=== PATIENT | male | born 1935 | race Caucasian/White ===

== ENCOUNTER 2021-11-15 22:52 | Emergency (ER) | payer MEDICARE, BC, SELFPAY ==
[2021-11-15 23:19] VITALS: BP 157/90; PULSE 71; RESP 18; TEMP 37.1; O2SAT 100; BMI 27.8
--- NOTE | 2021-11-16 00:09 | ED_ITS ---
HPI - Fall General Chief Complaint: Fall/Minor Trauma Stated Complaint: Fell injured ribs Time Seen by Provider: 11/15/21 22:58 History of Present Illness HPI Narrative: Patient is a 86-year-old gentleman on blood thinners who fell tonight landing on the right side of his chest. He did not lose consciousness he did not hit his head he simply stumbled. Patient has pain over the anterior axillary line on the right. He has had no fevers no chills no night sweats no cough. The pain i s quite minimal. He states that he is comfortable not having any further evaluation would like to just go home as long as he does not have a collapsed lung. Related Data Home Medications Medication Instructions Recorded Confirmed atorvastatin 40 mg tablet mg 11/15/21 furosemide 20 mg tablet mg PO BID 11/15/21 levothyroxine 100 mcg tablet mcg 11/15/21 lisinopril 10 mg tablet mg 11/15/21 metoprolol succinate 50 mg mg PO 11/15/21 tablet,extended release 24 hr warfarin 5 mg tablet mg PO 11/15/21 Allergies Allergy/AdvReac Type Severity Reaction Status Date / Time Penicillins Allergy Rash Verified 11/15/21 23:27 Review of Systems Status of ROS: Reports: 10 or more systems reviewed and unremarkable except as noted in History and below Exam Narrative: Exam Narrative: EXAM GENERAL: Patient appears comfortable and well. EYES: No scleral icterus. LYMPH: No supraclavicular or cervical lymphadenopathy. SKIN: Visible skin seen during exam normal or with benign process only. EXT: No dependent lower extremity pedal edema. HEART: Regular rate and rhythm with no murmurs, rubs, or gallops. LUNGS: Clear to auscultation bilaterally with no crackles or wheezes. ABD: Soft, non tender, non distended. PSYCH: Good eye contact, speech is not pressured. Chest minimal tenderness to palpation. Const: Vital Signs, click to edit/add: Vital Signs - 24 hr 11/15/21 23:19 Temperature 98.7 F Pulse Rate [Right Pulse Oximeter] 71 Respiratory Rate 18 Blood Pressure [Le ft Upper Arm] 157/90 H Pulse Oximetry 100 Course Course Hospital Course: We did discuss further evaluation including imaging. She would like to return home with follow-up as needed. Vital Signs Vital signs: Initial Vital Signs Temperature 98.7 F 11/15/21 23:19 Temperature Source Temporal Artery Scan 11/15/21 23:19 Pulse Rate 71 11/15/21 23:19 Respiratory Rate 18 11/15/21 23:19 Blood Pressure 157/90 H 11/15/21 23:19 Blood Pressure Mean 112 11/15/21 23:19 Blood Pressure Position Sitting 11/15/21 23:19 Pulse Oximetry 100 11/15/21 23:19 Oxygen Delivery Method 11/15/21 23:19 Vital Signs Temperature 98.7 F 11/15/21 23:19 Pulse Rate 71 11/15/21 23:19 Respiratory Rate 18 11/15/21 23:19 Blood Pressure 157/90 H 11/15/21 23:19 Pulse Oximetry 100 11/15/21 23:19 Temperature 98.7 F 11/15/21 23:19 Pulse Rate 71 11/15/21 23:19 Respiratory Rate 18 11/15/21 23:19 Blood Pressure 157/90 H 11/15/21 23:19 Pulse Oximetry 100 11/15/21 23:19 Discharge Plan Discharge Clinical Impression: Chest wall contusion Patient Disposition: Home, Self-Care Condition: Stable Instructions: Rib Contusion (ED) Additional Instructions: Ice Tylenol Activity Level: No Restrictions Discharge Diet: Regular Prescriptions: No Action atorvastatin 40 mg tablet 0RF furosemide 20 mg tablet PO BID 0RF metoprolol succinate 50 mg tablet extended release 24 hr PO 0RF levothyroxine 100 mcg tablet 0RF lisinopril 10 mg tablet 0RF warfarin 5 mg tablet PO 0RF Rx Instructions: 5mg twice a week, other days 2.5mg Follow Up/Referrals: Vasyl Hay MD [Primary Care Provider] - Stand Alone Forms: [facility] Info Instructions
== END 2021-11-16 01:06 | disposition home or self-care (01) ==
LOC: ED 11-16 00:55
PROVIDERS: Emergency Provider Internal Medicine; PCP Family Medicine
DX: S20.219A Contusion of unspecified front wall of thorax, initial encounter (principal); W19.XXXA Unspecified fall, initial encounter
CPT/HCPCS: 99283

== ENCOUNTER 2023-02-13 05:42 | Emergency (ER) | payer MEDICARE, BC, SELFPAY ==
[2023-02-13 05:52] VITALS: BP 147/97; PULSE 83; RESP 16; TEMP 36.6; O2SAT 96; BMI 28.6
--- NOTE | 2023-02-13 06:03 | ED.MALEGU ---
HPI - Male Genitourinary General Time Seen by Provider: 06:03 Date Seen: 02/13/23 Chief complaint: Urogenital Problems, Male Stated complaint: peeing blood Time Seen by Provider: 02/13/23 06:02 Source: patient, family and RN notes reviewed Mode of arrival: ambulatory Limitations: no limitations History of Present Illness HPI Narrative: Patient is a very pleasant 87-year-old male currently on warfarin with a history of pacer who comes to the emergency room for evaluation regarding blood in his urine. Patient initially noticed this at approximately 0200 hours and then again at 0500 hours. He notes there are no clots. He denies any pain or urgency. He cannot say if he is completely emptying his bladder. Patient notes that he takes warfarin at night and did take his nighttime dose yesterday. He denies any recent trauma. He does state this has happened to him in the past but it gradually went away. He denies lightheadedness or shortness of breath. Patient notes that yesterday he felt that there was some vibration coming from his pacemaker. He notes that he did have it interrogated and was told there was nothing wrong with it. He has not feeling that sensation today. Patient presents with his son. Related Data Home Medications Medication Instructions Recorded Confirmed atorvastatin 40 mg tablet mg 11/15/21 furosemide 20 mg tablet mg PO BID 11/15/21 levothyroxine 100 mcg tablet mcg 11/15/21 lisinopril 10 mg tablet mg 11/15/21 metoprolol succinate 50 mg mg PO 11/15/21 tablet,extended release 24 hr warfarin 5 mg tablet mg PO 11/15/21 Allergies Allergy/AdvReac Type Severity Reaction Status Date / Time Penicillins Allergy Rash Verified 11/15/21 23:27 Review of Systems Status of ROS: Reports: 10 or more systems reviewed and unremarkable except as noted in History and below Const: Denies: fever, change in weight, fatigue or night sweats ENMT: Denies: throat pain or difficulty swallowing Cardio: Reports: other; Denies: chest pain or shortness of breath with exertion Resp: Denies: shortness of breath or cough GI: Denies: abdominal pain, nausea, vomiting or difficulty swallowing : Reports: blood in urine; Denies: painful urination, urinary frequency or urinary urgency Musculo: Denies: back pain Endo: Denies: fatigue PFSH PFSH Social History Smoking Status: Never smoker How often do you have a drink containing alcohol: never AUDIT-C Alcohol total score: 0 Non-prescribed substance use: denies use service: No Exam Narrative: Exam Narrative: Alert and oriented. No acute distress. Heart with regular rate and rhythm. Lungs are clear bilaterally. No CVA tenderness with percussion. Abdomen is soft nontender. No masses are palpated. Const: Vital Signs, click to edit/add: Vital Signs - 24 hr 02/13/23 05:52 Temperature 97.9 F Pulse Rate [Left P ulse Oximeter] 83 Respiratory Rate 16 Blood Pressure [Ri ght Upper Arm] 147/97 H Pulse Oximetry 96 Oxygen Delivery Me thod Room Air Course Course ED Course: Differential diagnosis includes but is not limited to UTI, nephrolithiasis, bladder wall lesion, elevated INR. At this time will check CBC, basic, INR as well as urinalysis. Vital Signs Vital signs: Initial Vital Signs Temperature 97.9 F 02/13/23 05:52 Temperature Source Temporal Artery Scan 02/13/23 05:52 Pulse Rate 83 02/13/23 05:52 Respiratory Rate 16 02/13/23 05:52 Blood Pressure 147/97 H 02/13/23 05:52 Blood Pressure Mean 113 H 02/13/23 05:52 Blood Pressure Position Sitting 02/13/23 05:52 Pulse Oximetry 96 02/13/23 05:52 Oxygen Delivery Method Room Air 02/13/23 05:52 Vital Signs Temperature 97.9 F 02/13/23 05:52 Pulse Rate 83 02/13/23 05:52 Respiratory Rate 16 02/13/23 05:52 Blood Pressure 147/97 H 02/13/23 05:52 Pulse Oximetry 96 02/13/23 05:52 Oxygen Delivery Method Room Air 02/13/23 05:52 Temperature 97.9 F 02/13/23 05:52 Pulse Rate 83 02/13/23 05:52 Respiratory Rate 16 02/13/23 05:52 Blood Pressure 147/97 H 02/13/23 05:52 Pulse Oximetry 96 02/13/23 05:52 Oxygen Delivery Method Room Air 02/13/23 05:52 MDM - Male Genitourinary MDM Narrative Medical decision making narrative: 1. Hematuria-at this time there is no evidence of UTI on urinalysis and patient has no symptoms of UTI. INR is elevated at 3.51. Hemoglobin is normal. At this time my thought is that patient may have a bladder lesion or bleeding that is secondary to elevated INR. I do not feel that he needs emergent urological consult. We will await the urine culture to ensure no underlying infection. Otherwise our plans are for allowing the INR to slowly drift down. I did explain that we could certainly reverse his Coumadin but that would place him at risk for stroke and I do not feel that that option is necessary at this time with a reassuring hemoglobin. 2. Anticoagulation-INR 3.5. At this time recommend skipping tonight dose of Coumadin. Recommend eating broccoli or other green vegetable today as well. 3. Disposition-at this time will allow Vasyl to return home. He is to monitor his urine today. If he is feeling lightheaded or has chest pain, develops clot in or inability to urinate or fever he will need to return to the emergency room for further evaluation. Additionally, he will need to return to the ER if he has blood in his urine greater than 24 hours. If the bleeding stops he will need to follow up with his primary MD as he may need urological consultation. Medical Records Attestation: I reviewed the patient's medical records. Lab Data Attestation: I reviewed the patient's lab results. Labs: Lab Results 02/13/23 02/13/23 Range/Units 05:50 06:15 WBC 9.73 (4.50-11.00) K/uL RBC 4.21 L (4.30-5.90) m/uL Hgb 13.8 (13.5-17.5) gm/dL Hct 40.6 (37.0-53.0) % MCV 96 (80-100) fL MCH 33 (26-34) pg MCHC 34 (32-36) gm/dL RDW Coeff of [place] 13.3 (11.5-15.5) % Plt Count 169 (140-440) K/uL Neut % (Auto) 79.1 H (42.0-72.0) % Lymph % (Auto) 12.3 L (20-44) % [place] % (Auto) 5.4 (0.0-11.0) % Eos % (Auto) 2.6 (0.0-7.0) % Baso % (Auto) 0.4 (0.0-3.0) % Neut # (Auto) 7.70 H (1.7-7.0) K/uL Lymph # (Auto) 1.20 (0.90-2.90) K/uL [place] # (Auto) 0.50 (0.00-0.90) K/UL Eos # (Auto) 0.25 (0.00-0.50) K/uL Baso # (Auto) 0.04 (0.00-0.30) K/uL Abs Immat Gran (auto) 0.02 (0.00-0.30) K/uL Imm/Tot Granulo (auto) 0.2 % INR 3.51 H (0.91-1.10) Sodium 141 (135-149) mmol/L Potassium 3.9 (3.6-5.1) mmol/L Chloride 107 (96-114) mmol/L Carbon Dioxide 27 (20-32) mmol/L Anion Gap 7 (7-15) mEq/L BUN 25 (7-30) mg/dL Creatinine 0.9 (0.5-1.5) mg/dL Estimated Creat Clear 57.12 Estimated GFR 83 ml/min Glucose 130 H (60-115) mg/dL Calcium 9.5 (8.4-10.6) mg/dL Urine Color Red A (Yellow) Urine Appearance Cloudy A (Clear) Urine pH 6.0 (5.0-8.5) Ur Specific [place] 1.020 (1.000-1.030) Urine Protein 2+ A (Negative) Urine Glucose (UA) Negative (Negative) Urine Ketones Negative (Negative) Urine Blood 3+ A (Negative) Urine Nitrite Negative (Negative) Urine Bilirubin Negative (Negative) Urine Urobilinogen 1.0 (0.2-1.0) Ur Leukocyte Esterase Negative (Negative) Urine RBC >100 A (0-2) Urine WBC 0-2 (0-5) Ur Squamous Epith Cells Few (None-Few) Urine Bacteria Few A (None) Discharge Plan Discharge Clinical Impression: Hematuria Patient Disposition: Home, Self-Care Condition: Unchanged Additional Instructions: 1. The urine sample did not show any evidence of an infection today. However, there is a 2nd test called a urine culture which will be done to make sure there is no infection. The results will be available tomorrow and should you have an infection you will be called. 2. Your INR is 3.51. I suggest today that you eat some green vegetables such as broccoli. I would also ask that you skip your nighttime dosing of Coumadin. Check in with your clinics Coumadin nurse to provide further suggestions for your INR. 3. Return to the emergency room if you develop fever, inability to urinate, painful urination or worsening symptoms. 4. If your bleeding stops today, you may follow-up with your regular doctor next week for recheck. They may have you see a urologist. If your bleeding does not stop in the next 24 hours he will need to return to the emergency room for a hemoglobin recheck. Prescriptions: No Action atorvastatin 40 mg tablet furosemide 20 mg tablet PO BID metoprolol succinate 50 mg tablet extended release 24 hr PO levothyroxine 100 mcg tablet lisinopril 10 mg tablet warfarin 5 mg tablet PO Rx Instructions: 5mg twice a week, other days 2.5mg Follow Up/Referrals: Vasyl Hay MD [Primary Care Provider] - Stand Alone Forms: [employer] Info Instructions
[2023-02-13 06:24] LABS: Basophils Absolute Auto 0.04 K/uL (0.00-0.30); Basophils Percent Auto 0.4 % (0.0-3.0); Eosinophils Absolute Auto 0.25 K/uL (0.00-0.50); Eosinophils Percent Auto 2.6 % (0.0-7.0); Hematocrit 40.6 % (37.0-53.0); Hemoglobin* 13.8 gm/dL (13.5-17.5); Immature Granulocytes Abs Auto 0.02 K/uL (0.00-0.30); Immature Granulocytes Pct Auto 0.2 %; Lymphocytes Percent Auto 12.3 % (20-44); Mean Corpuscular HGB Conc 34 gm/dL (32-36); Mean Corpuscular Hemoglobin 33 pg (26-34); Mean Corpuscular Volume 96 fL (80-100); Monocytes Percent Auto 5.4 % (0.0-11.0); Neutrophils Percent Auto 79.1 % (42.0-72.0); Platelet Count* 169 K/uL (140-440); RDW Coefficient of Variation % 13.3 % (11.5-15.5); Red Blood Count 4.21 m/uL (4.30-5.90); White Blood Count* 9.73 K/uL (4.50-11.00)
[2023-02-13 06:26] LABS: Appearance Urine Cloudy (Clear); Bacteria Urine Few; Bilirubin Urine Negative (Negative); Blood Urine 3+ (Negative); Color Urine Red (Yellow); Glucose Urine Negative (Negative); Ketones Urine Negative (Negative); Leukocyte Esterase Urine Negative (Negative); Nitrite Urine Negative (Negative); Protein Urine 2+ (Negative); RBC Urine >100 (0-2); Squamous Epithelial Cell Urine Few (None-Few); WBC Urine 0-2 (0-5)
[2023-02-13 06:27] LABS: Slide Review Reflex No
[2023-02-13 06:36] LABS: Chloride* 107 mmol/L (96-114); Potassium* 3.9 mmol/L (3.6-5.1); Sodium* 141 mmol/L (135-149)
[2023-02-13 06:39] LABS: Creatinine* 0.9 mg/dL (0.5-1.5); Est. Creatinine Clearance* 57.12; Estimated Glomerular Filt Rate 83 ml/min
[2023-02-13 06:40] LABS: Anion Gap 7 mEq/L (7-15); Blood Urea Nitrogen* 25 mg/dL (7-30); Calcium* 9.5 mg/dL (8.4-10.6); Carbon Dioxide* 27 mmol/L (20-32); Glucose* 130 mg/dL (60-115)
[2023-02-13 06:43] LABS: INR 3.51 (0.91-1.10); Prothrombin Time 36.8 Seconds
== END 2023-02-13 07:35 | disposition home or self-care (01) ==
PROVIDERS: Emergency Provider Family Medicine; PCP Family Medicine
DX: R31.9 Hematuria, unspecified (principal); Z79.01 Long term (current) use of anticoagulants
CPT/HCPCS: 36415; 80048; 81001; 85025; 85610; 87086; 99283; 99284

== ENCOUNTER 2023-11-13 14:30 | Observation (INO) | payer MEDICARE, BC, SELFPAY ==
[2023-11-13] VITALS (23 sets, daily range): BP systolic 127–161; BP diastolic 77–98; PULSE 44–99; RESP 16–18; TEMP 36.8–36.9; O2SAT 96–100; BMI 31.6
--- NOTE | 2023-11-13 14:40 | CRLHL7_ITS ---
For Patients: As a result of the Century Cures Act, medical imaging exams and procedure reports are released immediately into your electronic medical record. You may view this report before your referring provider. If you have questions, please contact your health care provider. Indication: Fall Technique: Noncontrast axial CT of the cervical spine with coronal and sagittal reformats. Comparison: Same-day CT head Findings: Reversal of the normal cervical lordosis. Trace retrolisthesis at C4-5 and C5-6, trace anterolisthesis at C7-T1. No acute fracture identified. Craniocervical junction appears within normal limits. Scattered spondylosis. Bony ankylosis across the right C2-3 facet joint. Spinal canal appears grossly patent. Uncovertebral and facet arthropathy contribute to multilevel neural foraminal stenosis, greatest on the right at C3-4. No suspicious findings identified in the paraspinal soft tissues. Acls Nurse images demonstrate left pectoral pacemaker and leads. Impression: 1. No evidence of acute fracture or traumatic malalignment in cervical spine. 2. Cervical spondylosis as detailed. Please note that all CT scans at this facility use dose modulation, iterative reconstruction, and/or weight-based dosing when appropriate to reduce radiation dose to as low as reasonably achievable. Dictated by Prisca Goff MD @ 11/13/2023 3:47:43 PM (Electronically Signed)
--- NOTE | 2023-11-13 14:40 | CRLHL7_ITS ---
For Patients: As a result of the Century Cures Act, medical imaging exams and procedure reports are released immediately into your electronic medical record. You may view this report before your referring provider. If you have questions, please contact your health care provider. INDICATION: Fall TECHNIQUE: Noncontrast axial CT of the head. Coronal and sagittal reformats. Bone and soft tissue algorithms. COMPARISON: CT head 11/11/2023, 02/06/2021 FINDINGS: Extra-axial fluid collection along the right cerebral convexity, measuring up to 6 mm maximal coronal thickness overlying the parietal lobe (series 6/62), with 3 mm thickness dense component along the frontal convexity (series 6/37). No significant subjacent mass effect, midline shift, or herniation. Stable chronic left parieto-occipital infarct. Stable generalized cerebral volume loss and chronic microangiopathy changes. Redemonstration of presumed partially calcified right frontal convexity meningioma. Calcific intracranial atherosclerotic plaquing. Intact calvarium. Clear visualized paranasal sinuses and mastoid air cells. Bilateral lens implants. IMPRESSION: 1. Thin 6 mm extra-axial collection along the right cerebral convexity, new from 11/11/2023, with discrete hyperdense and hypodense components, suggestive of subdural hematohygroma. 2. No skull fracture, midline shift, or herniation. Exam findings were discussed with Lisa Womack at 3:42 p.m. on 11/13/2023. Please note that all CT scans at this facility use dose modulation, iterative reconstruction, and/or weight-based dosing when appropriate to reduce radiation dose to as low as reasonably achievable. Dictated by Prisca Goff MD @ 11/13/2023 3:43:52 PM (Electronically Signed)
[2023-11-13 15:13] LABS: Lactate* 1.6 mmol/L (0.5-1.9)
[2023-11-13 15:18] LABS: Basophils Absolute Auto 0.04 K/uL (0.00-0.30); Basophils Percent Auto 0.6 % (0.0-3.0); Eosinophils Absolute Auto 0.28 K/uL (0.00-0.50); Eosinophils Percent Auto 4.2 % (0.0-7.0); Hematocrit 40.3 % (37.0-53.0); Hemoglobin* 13.5 gm/dL (13.5-17.5); Immature Granulocytes Abs Auto 0.04 K/uL (0.00-0.30); Immature Granulocytes Pct Auto 0.6 %; Lymphocytes Absolute Auto 1.41 K/uL (0.90-2.90); Mean Corpuscular HGB Conc 34 gm/dL (32-36); Mean Corpuscular Hemoglobin 32 pg (26-34); Mean Corpuscular Volume 96 fL (80-100); Monocytes Percent Auto 7.6 % (0.0-11.0); Neutrophils Absolute Auto 4.45 K/uL (1.7-7.0); Platelet Count* 165 K/uL (140-440); RDW Coefficient of Variation % 13.6 % (11.5-15.5); Red Blood Count 4.19 m/uL (4.30-5.90); White Blood Count* 6.73 K/uL (4.50-11.00)
[2023-11-13 15:25] LABS: Slide Review Reflex No
[2023-11-13 15:40] LABS: Albumin* 3.8 g/dL (3.3-5.0); Chloride* 107 mmol/L (96-114)
[2023-11-13 15:41] LABS: Sodium* 141 mmol/L (135-149)
[2023-11-13 15:42] LABS: Potassium* 3.2 mmol/L (3.6-5.1)
[2023-11-13 15:43] LABS: Creatinine* 0.8 mg/dL (0.5-1.5); Est. Creatinine Clearance* 51.06; Estimated Glomerular Filt Rate 85 ml/min
[2023-11-13 15:44] LABS: Alanine Aminotransferase* 17 U/L (4-50); Alkaline Phosphatase* 87 U/L (40-150); Anion Gap 7 mEq/L (7-15); Aspartate Amino Transferase* 24 U/L (12-35); Bilirubin Direct* 0.2 mg/dL (0.0-0.5); Bilirubin Total* 3.2 mg/dL (0.1-1.5); Blood Urea Nitrogen* 17 mg/dL (7-30); Carbon Dioxide* 27 mmol/L (20-32); Glucose* 118 mg/dL (60-115); Total Protein* 6.8 g/dL (6.0-8.3)
[2023-11-13 15:45] LABS: Calcium* 8.5 mg/dL (8.4-10.6)
[2023-11-13 15:51] LABS: C Reactive Protein* < 0.5 mg/dL (0.5-1.0)
[2023-11-13 15:54] LABS: Troponin, Point-of-Care* 0.01 ng/ml (0.01-0.04)
[2023-11-13 16:03] LABS: NT Pro B Type NatriureticPept* 828 pg/mL; Troponin I* < 0.01 ng/mL (0.01-0.04)
--- NOTE | 2023-11-13 16:06 | ED_ITS ---
HPI - General Adult General Chief complaint: Fall/Minor Trauma Stated complaint: fall, cut on head Time Seen by Provider: 11/13/23 14:39 Source: patient and family Mode of arrival: ambulatory Limitations: no limitations History of Present Illness HPI narrative: 88-year-old male coming in today after falling and hitting his head. Patient states that he specially very dizzy over the last 4 days and has fallen multiple times. He denies the room spinning. He denies chest pain or shortness of breath. He does not think that he has lost consciousness but feels like he is going to and falls. He was seen in the [place] [facility] 2 days ago after a fall, head CT was unremarkable lab work was unremarkable and patient was sent home. Today he states that he was trying to walk through the bathroom door in his walker was in the way so he walked around a walker to moved out of the way so the door could shot, felt lightheaded and fell hitting his head on but he thinks was the door or the walker on his way down. He states that he did not lose consciousness. He was able to get up right away and noticed that he was bleeding. He does live independently. He is on blood thinners. Related Data Home Medications ?Medication ?Instructions ?Recorded ?Confirmed atorvastatin 40 mg tablet mg 11/15/21 furosemide 20 mg tablet mg PO BID 11/15/21 levothyroxine 100 mcg tablet mcg 11/15/21 lisinopril 10 mg tablet mg 11/15/21 metoprolol succinate 50 mg mg PO 11/15/21 tablet,extended release 24 hr warfarin 5 mg tablet mg PO 11/15/21 Allergies Allergy/AdvReac Type Severity Reaction Status Date / Time Penicillins Allergy Rash Verified 11/15/21 23:27 Review of Systems Status of ROS: Reports: 10 or more systems reviewed and unremarkable except as noted in History and below [facility] Social History Smoking Status: Never smoker Do you use any of these nicotine containing products: None Second hand tobacco smoke exposure: No How often do you have a drink containing alcohol: never AUDIT-C Alcohol total score: 0 Non-prescribed substance use: denies use service: No Exam Narrative: Exam Narrative: Well-nourished well-developed patient in no acute distress. Alert and oriented. Answers questions appropriately. Mood and affect are appropriate. Thoughts are goal oriented and rational. No tangential or magical thinking noted. Patient speaks in full sentences without needing to catch his breath. HEENT: Normocephalic. Pupils are equally round reactive to light. Extraocular muscles are intact. Conjunctivae are moist without any icterus noted. Moist mucous membranes. Neck is soft. He has no tenderness to palpation of the cervical spine. Small laceration to the top of the anterior head. Cardiovascular: Heart is regular rate and rhythm. Bilateral radial pulses are weak. Lungs: Clear to auscultation bilaterally no wheezes rhonchi or rales are appreciated. Patient takes deep breaths without any discomfort. Abdomen: Soft and nontender nondistended with normal bowel sounds. Skin: Well perfused. Const: Vital Signs, click to edit/add: Vital Signs - 24 hr 11/13/23 14:34 11/13/23 15:05 11/13/23 16:24 Temperature 98.3 F Pulse Rate [Pulse Oximeter] 99 Pulse Rate [orthos tatic lying Apical ] 70 Pulse Rate [orthos tatic sitting] 75 Pulse Rate [orthos tatic standing Api linda] 44 L Respiratory Rate 18 Blood Pressure [Ri ght Upper Arm] 134/79 Blood Pressure [or thostatic lying Ri ght Arm] 150/83 H Blood Pressure [or thostatic sitting Right Arm] 154/96 H Blood Pressure [or thostatic standing ] 130/81 Pulse Oximetry 96 99 Oxygen Delivery Me thod Room Air Course Course ED Course: EKG, read by me, shows a ventricular paced rhythm, pulse 70. Labs were drawn: CBC was unremarkable. Chemistries show a low potassium at 3.2. Patient does have a history of hypokalemia. Normal lactate, LFTs are unremarkable aside from elevated total bilirubin at 3.2. Direct bilirubin is normal at 0.2. Troponin CRP are normal. BNP 828. Normal TSH INR is therapeutic at 2.25 Patient does have a history of hypokalemia, takes potassium supplements but has been having a difficult time swallowing them recently. When he was seen in the [place] [facility] 2 days ago for the same issue he is being seen today, they did change his potassium tablets to powder. Consult was done with Emilie Gonzales, Dr. Carranza, neurology, who felt that follow-up imaging was not necessary. Orthostatic vital signs were done: Patient's blood pressure did drop almost 20 points when he stood up in his pulse went from 70-44. He became acutely symptomatic. Given the patient's weakness, significant dizziness upon standing, he is not safe to go home at this time. Vital Signs Vital signs: Initial Vital Signs Temperature 98.3 F 11/13/23 14:34 Temperature Source Temporal Artery Scan 11/13/23 14:34 Pulse Rate 99 11/13/23 14:34 Respiratory Rate 18 11/13/23 14:34 Blood Pressure 134/79 11/13/23 14:34 Blood Pressure Mean 97 11/13/23 14:34 Pulse Oximetry 96 11/13/23 14:34 Oxygen Delivery Method Room Air 11/13/23 14:34 Vital Signs Temperature 98.3 F 11/13/23 14:34 Pulse Rate 99 11/13/23 14:34 Respiratory Rate 18 11/13/23 14:34 Blood Pressure 134/79 11/13/23 14:34 Pulse Oximetry 96 11/13/23 14:34 Oxygen Delivery Method Room Air 11/13/23 14:34 Temperature 98.3 F 11/13/23 14:34 Pulse Rate 70 11/13/23 16:24 Respiratory Rate 18 11/13/23 14:34 Blood Pressure 150/83 H 11/13/23 16:24 Pulse Oximetry 99 11/13/23 15:05 Oxygen Delivery Method Room Air 11/13/23 14:34 Medical Decision Making MDM Narrative Medical decision making narrative: 88-year-old male with dizziness and multiple falls over the last couple of days, certainly sounds like he may have been having syncopal episodes, on anticoagulation therapy now presenting with a subdural hematoma. Patient will be admitted for further management. Lab Data Lab results reviewed: Yes I reviewed the patient's lab results Labs: Lab Results 11/13/23 11/13/23 11/13/23 Range/Units 15:05 15:05 15:05 WBC 6.73 (4.50-11.00) K/uL RBC 4.19 L (4.30-5.90) m/uL Hgb 13.5 (13.5-17.5) gm/dL Hct 40.3 (37.0-53.0) % MCV 96 (80-100) fL MCH 32 (26-34) pg MCHC 34 (32-36) gm/dL RDW Coeff of [place] 13.6 (11.5-15.5) % Plt Count 165 (140-440) K/uL Neut % (Auto) 66.0 (42.0-72.0) % Lymph % (Auto) 21.0 (20-44) % [place] % (Auto) 7.6 (0.0-11.0) % Eos % (Auto) 4.2 (0.0-7.0) % Baso % (Auto) 0.6 (0.0-3.0) % Neut # (Auto) 4.45 (1.7-7.0) K/uL Lymph # (Auto) 1.41 (0.90-2.90) K/uL [place] # (Auto) 0.50 (0.00-0.90) K/UL Eos # (Auto) 0.28 (0.00-0.50) K/uL Baso # (Auto) 0.04 (0.00-0.30) K/uL Abs Immat Gran (auto) 0.04 (0.00-0.30) K/uL Imm/Tot Granulo (auto) 0.6 % INR 2.25 H (0.91-1.10) Sodium Cancelled 141 Potassium Cancelled 3.2 L Chloride Cancelled Carbon Dioxide Anion Gap BUN Creatinine Estimated Creat Clear Estimated GFR Glucose Lactate (0.5-1.9) mmol/L Calcium Magnesium (1.5-2.6) mg/dL Total Bilirubin (0.1-1.5) mg/dL Direct Bilirubin (0.0-0.5) mg/dL AST (12-35) U/L ALT (4-50) U/L Alkaline Phosphatase (40-150) U/L Troponin I (0.01-0.04) ng/mL C-Reactive Protein NT-Pro-B Natriuret Pep pg/mL Total Protein (6.0-8.3) g/dL Albumin (3.3-5.0) g/dL TSH (0.270-4.20) uIU/mL SARS-CoV-2 (PCR) (Negative) Influenza Type A (PCR) (Negative) Influenza Type B (PCR) (Negative) Lab Acknowledgement POC Troponin I (0.01-0.04) ng/ml 11/13/23 11/13/23 11/13/23 Range/Units 15:05 15:05 15:05 WBC (4.50-11.00) K/uL RBC (4.30-5.90) m/uL Hgb (13.5-17.5) gm/dL Hct (37.0-53.0) % MCV (80-100) fL MCH (26-34) pg MCHC (32-36) gm/dL RDW Coeff of [place] (11.5-15.5) % Plt Count (140-440) K/uL Neut % (Auto) (42.0-72.0) % Lymph % (Auto) (20-44) % [place] % (Auto) (0.0-11.0) % Eos % (Auto) (0.0-7.0) % Baso % (Auto) (0.0-3.0) % Neut # (Auto) (1.7-7.0) K/uL Lymph # (Auto) (0.90-2.90) K/uL [place] # (Auto) (0.00-0.90) K/UL Eos # (Auto) (0.00-0.50) K/uL Baso # (Auto) (0.00-0.30) K/uL Abs Immat Gran (auto) (0.00-0.30) K/uL Imm/Tot Granulo (auto) % INR (0.91-1.10) Sodium Potassium Chloride 107 Carbon Dioxide Cancelled 27 Anion Gap Cancelled 7 BUN Cancelled Creatinine Estimated Creat Clear Estimated GFR Glucose Lactate (0.5-1.9) mmol/L Calcium Magnesium (1.5-2.6) mg/dL Total Bilirubin (0.1-1.5) mg/dL Direct Bilirubin (0.0-0.5) mg/dL AST (12-35) U/L ALT (4-50) U/L Alkaline Phosphatase (40-150) U/L Troponin I (0.01-0.04) ng/mL C-Reactive Protein NT-Pro-B Natriuret Pep pg/mL Total Protein (6.0-8.3) g/dL Albumin (3.3-5.0) g/dL TSH (0.270-4.20) uIU/mL SARS-CoV-2 (PCR) (Negative) Influenza Type A (PCR) (Negative) Influenza Type B (PCR) (Negative) Lab Acknowledgement POC Troponin I (0.01-0.04) ng/ml 11/13/23 11/13/23 11/13/23 Range/Units 15:05 15:05 15:05 WBC (4.50-11.00) K/uL RBC (4.30-5.90) m/uL Hgb (13.5-17.5) gm/dL Hct (37.0-53.0) % MCV (80-100) fL MCH (26-34) pg MCHC (32-36) gm/dL RDW Coeff of Jena (11.5-15.5) % Plt Count (140-440) K/uL Neut % (Auto) (42.0-72.0) % Lymph % (Auto) (20-44) % [place] % (Auto) (0.0-11.0) % Eos % (Auto) (0.0-7.0) % Baso % (Auto) (0.0-3.0) % Neut # (Auto) (1.7-7.0) K/uL Lymph # (Auto) (0.90-2.90) K/uL [place] # (Auto) (0.00-0.90) K/UL Eos # (Auto) (0.00-0.50) K/uL Baso # (Auto) (0.00-0.30) K/uL Abs Immat Gran (auto) (0.00-0.30) K/uL Imm/Tot Granulo (auto) % INR (0.91-1.10) Sodium Potassium Chloride Carbon Dioxide Anion Gap BUN 17 Creatinine Cancelled 0.8 Estimated Creat Clear Cancelled 51.06 Estimated GFR Cancelled Glucose Lactate (0.5-1.9) mmol/L Calcium Magnesium (1.5-2.6) mg/dL Total Bilirubin (0.1-1.5) mg/dL Direct Bilirubin (0.0-0.5) mg/dL AST (12-35) U/L ALT (4-50) U/L Alkaline Phosphatase (40-150) U/L Troponin I (0.01-0.04) ng/mL C-Reactive Protein NT-Pro-B Natriuret Pep pg/mL Total Protein (6.0-8.3) g/dL Albumin (3.3-5.0) g/dL TSH (0.270-4.20) uIU/mL SARS-CoV-2 (PCR) (Negative) Influenza Type A (PCR) (Negative) Influenza Type B (PCR) (Negative) Lab Acknowledgement POC Troponin I (0.01-0.04) ng/ml 11/13/23 11/13/23 11/13/23 Range/Units 15:05 15:05 15:05 WBC (4.50-11.00) K/uL RBC (4.30-5.90) m/uL Hgb (13.5-17.5) gm/dL Hct (37.0-53.0) % MCV (80-100) fL MCH (26-34) pg MCHC (32-36) gm/dL RDW Coeff of Jena (11.5-15.5) % Plt Count (140-440) K/uL Neut % (Auto) (42.0-72.0) % Lymph % (Auto) (20-44) % [place] % (Auto) (0.0-11.0) % Eos % (Auto) (0.0-7.0) % Baso % (Auto) (0.0-3.0) % Neut # (Auto) (1.7-7.0) K/uL Lymph # (Auto) (0.90-2.90) K/uL [place] # (Auto) (0.00-0.90) K/UL Eos # (Auto) (0.00-0.50) K/uL Baso # (Auto) (0.00-0.30) K/uL Abs Immat Gran (auto) (0.00-0.30) K/uL Imm/Tot Granulo (auto) % INR (0.91-1.10) Sodium Potassium Chloride Carbon Dioxide Anion Gap BUN Creatinine Estimated Creat Clear Estimated GFR 85 Glucose Cancelled 118 H Lactate 1.6 (0.5-1.9) mmol/L Calcium Cancelled 8.5 Magnesium 2.0 (1.5-2.6) mg/dL Total Bilirubin 3.2 H (0.1-1.5) mg/dL Direct Bilirubin 0.2 (0.0-0.5) mg/dL AST 24 (12-35) U/L ALT 17 (4-50) U/L Alkaline Phosphatase 87 (40-150) U/L Troponin I < 0.01 L (0.01-0.04) ng/mL C-Reactive Protein Cancelled NT-Pro-B Natriuret Pep pg/mL Total Protein (6.0-8.3) g/dL Albumin (3.3-5.0) g/dL TSH (0.270-4.20) uIU/mL SARS-CoV-2 (PCR) (Negative) Influenza Type A (PCR) (Negative) Influenza Type B (PCR) (Negative) Lab Acknowledgement POC Troponin I (0.01-0.04) ng/ml 11/13/23 11/13/23 Range/Units 15:05 16:57 WBC (4.50-11.00) K/uL RBC (4.30-5.90) m/uL Hgb (13.5-17.5) gm/dL Hct (37.0-53.0) % MCV (80-100) fL MCH (26-34) pg MCHC (32-36) gm/dL RDW Coeff of Jena (11.5-15.5) % Plt Count (140-440) K/uL Neut % (Auto) (42.0-72.0) % Lymph % (Auto) (20-44) % [place] % (Auto) (0.0-11.0) % Eos % (Auto) (0.0-7.0) % Baso % (Auto) (0.0-3.0) % Neut # (Auto) (1.7-7.0) K/uL Lymph # (Auto) (0.90-2.90) K/uL [place] # (Auto) (0.00-0.90) K/UL Eos # (Auto) (0.00-0.50) K/uL Baso # (Auto) (0.00-0.30) K/uL Abs Immat Gran (auto) (0.00-0.30) K/uL Imm/Tot Granulo (auto) % INR (0.91-1.10) Sodium Potassium Chloride Carbon Dioxide Anion Gap BUN Creatinine Estimated Creat Clear Estimated GFR Glucose Lactate (0.5-1.9) mmol/L Calcium Magnesium (1.5-2.6) mg/dL Total Bilirubin (0.1-1.5) mg/dL Direct Bilirubin (0.0-0.5) mg/dL AST (12-35) U/L ALT (4-50) U/L Alkaline Phosphatase (40-150) U/L Troponin I (0.01-0.04) ng/mL C-Reactive Protein < 0.5 L NT-Pro-B Natriuret Pep 828 pg/mL Total Protein 6.8 (6.0-8.3) g/dL Albumin 3.8 (3.3-5.0) g/dL TSH 0.925 (0.270-4.20) uIU/mL SARS-CoV-2 (PCR) Negative SARS-CoV-2 (Negative) Influenza Type A (PCR) Negative PCR FLU A (Negative) Influenza Type B (PCR) Negative PCR FLU B (Negative) Lab Acknowledgement Test Added POC Troponin I 0.01 (0.01-0.04) ng/ml Imaging Data CT scan - head: Attestation: I have reviewed the pertinent imaging results. Radiologist's impression: CT head 11/11/2023, 02/06/2021 FINDINGS: Extra-axial fluid collection along the right cerebral convexity, measuring up to 6 mm maximal coronal thickness overlying the parietal lobe (series 6/62), with 3 mm thickness dense component along the frontal convexity (series 6/37). No significant subjacent mass effect, midline shift, or herniation. Stable chronic left parieto-occipital infarct. Stable generalized cerebral volume loss and chronic microangiopathy changes. Redemonstration of presumed partially calcified right frontal convexity meningioma. Calcific intracranial atherosclerotic plaquing. Intact calvarium. Clear visualized paranasal sinuses and mastoid air cells. Bilateral lens implants. IMPRESSION: 1. Thin 6 mm extra-axial collection along the right cerebral convexity, new from 11/11/2023, with discrete hyperdense and hypodense components, suggestive of subdural hematohygroma. 2. No skull fracture, midline shift, or herniation. Exam findings were discussed with Lisa Womack at 3:[address] on 11/13/2023. CT- Other: Attestation: I have reviewed the pertinent imaging results. Radiologist's impression: Noncontrast axial CT of the cervical spine with coronal and sagittal reformats. Comparison: Same-day CT head Findings: Reversal of the normal cervical lordosis. Trace retrolisthesis at C4-5 and C5-6, trace anterolisthesis at C7-T1. No acute fracture identified. Craniocervical junction appears within normal limits. Scattered spondylosis. Bony ankylosis across the right C2-3 facet joint. Spinal canal appears grossly patent. Uncovertebral and facet arthropathy contribute to multilevel neural foraminal stenosis, greatest on the right at C3-4. No suspicious findings identified in the paraspinal soft tissues. Certified Welder images demonstrate left pectoral pacemaker and leads. Impression: 1. No evidence of acute fracture or traumatic malalignment in cervical spine. 2. Cervical spondylosis as detailed. ECG Data Attestation: I personally reviewed and interpreted this ECG as follows: Discharge Plan Discharge Clinical Impression: Dizziness, Syncope, Acute subdural hematoma Patient Disposition: Admitted As Observation Condition: Stable Prescriptions: No Action atorvastatin 40 mg tablet furosemide 20 mg tablet PO BID metoprolol succinate 50 mg tablet extended release 24 hr PO levothyroxine 100 mcg tablet lisinopril 10 mg tablet warfarin 5 mg tablet PO Rx Instructions: 5mg twice a week, other days 2.5mg Follow Up/Referrals: Vasyl Hay MD [Primary Care Provider] -
[2023-11-13 16:10] LABS: PCR FLU A Negative PCR FLU A (Negative); PCR FLU B Negative PCR FLU B (Negative); SARS PCR* Negative SARS-CoV-2 (Negative)
[2023-11-13 16:19] LABS: Thyroid Stimulating Hormone* 0.925 uIU/mL (0.270-4.20)
[2023-11-13 16:36] LABS: INR 2.25 (0.91-1.10); Prothrombin Time 26.6 Seconds
--- NOTE | 2023-11-13 17:55 | P.IMHP_ITS ---
Hospitalist- H&P: HPI History of Present Illness Date Seen: 11/13/23 Chief complaint: fall, cut on head Narrative: Vasyl Santiago is a 88 year old male who presented to the ED this evening after falling and hitting his head. He has noted dizziness (described as lightheadedness, noted both at rest and with ambulation; no obvious inciting incidents) and increased falls over the past few days. Two days ago, he was seen in the [place] [facility] after a fall. He had a normal head CT and reassuring labs with the exception of a potassium of 3.2 and an elevated bilirubin. His blood pressure was noted to be lower, so his home dose of her lisinopril was discontinued. He also had a new prescription sent for potassium powder packets (he has not been taking his potassium capsules given dysphagia). Today he had another fall at home while walking to the bathroom, he felt lig htheaded and hit his head either on the edge of his bathroom door his walker. Denies loss of consciousness. ER course and findings: - laceration on the top of head, minimal bleeding, repaired with Dermabond - potassium 3.2 - INR therapeutic - CT head reveals a 6mm abnormality suggestive of a subdural hematohygroma without any fracture or midline shift - ER physician reviewed with Neurosurgery, who did not feel that follow-up imaging was needed - had an episode of symptomatic bradycardia (down to 44) during orthostatic evaluation Given patient's comorbidities, falls with concern for presyncope and preceding dizziness, he is admitted to the hospital for monitoring and workup. Daughter and son-in-law present for H&P. Histories updated below. Dr. Hay is PCP locally. Review of Systems Status of ROS: Reports: 10 or more systems reviewed and unremarkable except as noted in History and below Narrative: - he has noted difficulty swallowing for the past year, primarily food and pills. No symptoms of gastritis - no concerning weight loss - polyuria, chronic. This seems to be temporally related to Lasix dosing [facility] Medical History (Updated 11/13/23 @ 20:03 by Myrna Sullivan MD) Elevated bilirubin ?R17 - Unspecified jaundice (ICD-10) DM2 (diabetes mellitus, type 2) ?E11.9 - Type 2 diabetes mellitus without complications (ICD-10) CHF (congestive heart failure), NYHA class II ?I50.9 - Heart failure, unspecified (ICD-10) Hyperlipidemia ?E78.5 - Hyperlipidemia, unspecified (ICD-10) Lower extremity edema ?R60.0 - Localized edema (ICD-10) Hypothyroidism ?E03.9 - Hypothyroidism, unspecified (ICD-10) Atrial fibrillation ?I48.91 - Unspecified atrial fibrillation (ICD-10) AN (obstructive sleep apnea) ?G47.33 - Obstructive sleep apnea (adult) (pediatric) (ICD-10) Surgical History (Updated 11/13/23 @ 19:54 by Myrna Sulilvan MD) H/O vasectomy ?Z98.52 - Vasectomy status (ICD-10) H/O esophagogastroduodenoscopy ?Z98.890 - Other specified postprocedural states (ICD-10) H/O left inguinal hernia repair ?Z98.890 - Other specified postprocedural states (ICD-10) ?Z87.19 - Personal history of other diseases of the digestive system (ICD-10) Pacemaker ?Z95.0 - Presence of cardiac pacemaker (ICD-10) Social History (Updated 11/13/23 @ 20:10 by Myrna Sullivan MD) Narrative: Lives independently at [address]. Uses cane/walker at home. Grown children, daughter Gilma would be medical decision maker if needed. He requests DNR/DNI status. Former smoker, former ETOH user, none now. What is your current living situation?: I presently have a place to live Problems where you live: no known problems Problems where you live details: none In the past 12 months, utilities in danger of being shut off: no In past 12 months, lack of transportation kept you from medical appts, meetings, work, or getting things needed for daily living: no In the past 12 mos, have been you worried that your food would run out before you had money to buy more?: never true In the past 12 mos, the food you bought just didn't last and you didn't have money to buy more?: never true Smoking Status: Former smoker Do you use any of these nicotine containing products: None Second hand tobacco smoke exposure: No How often do you have a drink containing alcohol: never AUDIT-C Alcohol total score: 0 Non-prescribed substance use: denies use Caffeine: No How often does anyone, including family, friends and others, physically hurt you : never How often does anyone, including family, friends and others, insult or talk down to you: never How often does anyone, including family, friends and others, threaten you with harm: never How often does anyone, including family, friends and others, scream or curse at you: never service: Yes Meds Home Medications and Allergies Home Medications ?Medication ?Instructions ?Recorded ?Confirmed ?Type atorvastatin 40 mg tablet 40 mg PO DAILY 11/15/21 11/13/23 History furosemide 20 mg tablet 40 mg PO DAILY 11/15/21 11/13/23 History levothyroxine 100 mcg tablet 100 mcg PO DAILY 11/15/21 11/13/23 History lisinopril 10 mg tablet 10 mg PO DAILY 11/15/21 11/13/23 History metoprolol succinate 50 mg 50 mg PO DAILY 11/15/21 11/13/23 History tablet,extended release 24 hr warfarin 5 mg tablet 2.5 - 5 mg PO .ud 11/15/21 11/13/23 History finasteride 5 mg tablet 5 mg PO DAILY 11/13/23 11/13/23 History potassium chloride 20 mEq oral 20 meq PO DAILY 11/13/23 11/13/23 History packet (Klor-Con) Home Medication Comments: - lisinopril recently stopped ([place] [facility]) Allergies Allergy/AdvReac Type Severity Reaction Status Date / Time Penicillins Allergy Rash Verified 11/15/21 23:27 Exam Narrative: Exam Narrative: GEN: Alert and answering questions appropriately, nontoxic HEENT: Wearing hearing aids, small laceration near R eyebrow. 4.5cm laceration over top of head that has been repaired with Dermabond and is hemostatic CV: Irregular with distant heart sounds and no concerning murmur R: LCTA bilaterally without concerning wheezing Ext: Hyperpigmentation of bilateral lower extremities consistent with PVD, 2+ symmetric pitting edema bilaterally Skin: Scattered bruising on extremities Neuro: No focal deficits on limited exam, no resting tremor Psych: Appropriate Const: Vital Signs, click to edit/add: Vital Signs - 24 hr 11/13/23 14:34 11/13/23 15:05 11/13/23 15:20 Temperature 98.3 F Pulse Rate 72 Pulse Rate [Pulse Oximeter] 99 Pulse Rate [orthos tatic lying Apical ] Pulse Rate [orthos tatic sitting] Pulse Rate [orthos tatic standing Api linda] Respiratory Rate 18 Blood Pressure Blood Pressure [Ri ght Upper Arm] 134/79 Blood Pressure [or thostatic lying Ri ght Arm] Blood Pressure [or thostatic sitting Right Arm] Blood Pressure [or thostatic standing ] Pulse Oximetry 96 99 98 [facility] 11/13/23 15:30 11/13/23 15:32 11/13/23 15:45 Temperature Pulse Rate 70 70 73 Pulse Rate [Pulse Oximeter] Pulse Rate [orthos tatic lying Apical ] Pulse Rate [orthos tatic sitting] Pulse Rate [orthos tatic standing Api linda] Respiratory Rate Blood Pressure 139/77 Blood Pressure [Ri ght Upper Arm] Blood Pressure [or thostatic lying Ri ght Arm] Blood Pressure [or thostatic sitting Right Arm] Blood Pressure [or thostatic standing ] Pulse Oximetry 98 98 99 Oxygen Delivery [facility] 11/13/23 16:00 11/13/23 16:02 11/13/23 16:17 Temperature Pulse Rate 70 Pulse Rate [Pulse Oximeter] Pulse Rate [orthos tatic lying Apical ] Pulse Rate [orthos tatic sitting] Pulse Rate [orthos tatic standing Api linda] Respiratory Rate Blood Pressure 140/77 H 150/83 H Blood Pressure [Ri ght Upper Arm] Blood Pressure [or thostatic lying Ri ght Arm] Blood Pressure [or thostatic sitting Right Arm] Blood Pressure [or thostatic standing ] Pulse Oximetry 100 Oxygen Delivery Mt thod 11/13/23 16:18 11/13/23 16:20 11/13/23 16:22 Temperature Pulse Rate 77 Pulse Rate [Pulse Oximeter] Pulse Rate [orthos tatic lying Apical ] Pulse Rate [orthos tatic sitting] Pulse Rate [orthos tatic standing Api linda] Respiratory Rate Blood Pressure 154/96 H 130/81 Blood Pressure [Ri ght Upper Arm] Blood Pressure [or thostatic lying Ri ght Arm] Blood Pressure [or thostatic sitting Right Arm] Blood Pressure [or thostatic standing ] Pulse Oximetry 98 Oxygen Delivery Me thod 11/13/23 16:24 11/13/23 16:32 11/13/23 16:33 Temperature Pulse Rate 74 72 Pulse Rate [Pulse Oximeter] Pulse Rate [orthos tatic lying Apical ] 70 Pulse Rate [orthos tatic sitting] 75 Pulse Rate [orthos tatic standing Api linda] 44 L Respiratory Rate Blood Pressure 147/94 H Blood Pressure [Ri ght Upper Arm] Blood Pressure [or thostatic lying Ri ght Arm] 150/83 H Blood Pressure [or thostatic sitting Right Arm] 154/96 H Blood Pressure [or thostatic standing ] 130/81 Pulse Oximetry 98 98 [facility] 11/13/23 16:45 11/13/23 17:00 11/13/23 17:01 Temperature Pulse Rate 70 69 70 Pulse Rate [Pulse Oximeter] Pulse Rate [orthos tatic lying Apical ] Pulse Rate [orthos tatic sitting] Pulse Rate [orthos tatic standing Api linda] Respiratory Rate Blood Pressure 161/93 H Blood Pressure [Ri ght Upper Arm] Blood Pressure [or thostatic lying Ri ght Arm] Blood Pressure [or thostatic sitting Right Arm] Blood Pressure [or thostatic standing ] Pulse Oximetry 98 99 98 Oxygen Delivery [facility] 11/13/23 17:15 11/13/23 17:30 Temperature Pulse Rate 70 71 Pulse Rate [Pulse Oximeter] Pulse Rate [orthos tatic lying Apical ] Pulse Rate [orthos tatic sitting] Pulse Rate [orthos tatic standing Api linda] Respiratory Rate Blood Pressure Blood Pressure [Ri ght Upper Arm] Blood Pressure [or thostatic lying Ri ght Arm] Blood Pressure [or thostatic sitting Right Arm] Blood Pressure [or thostatic standing ] Pulse Oximetry 98 99 Oxygen Delivery [facility] Hospitalist - H&P: Result Labs Labs: Short CBC 11/13/23 Range/Units 15:05 WBC 6.73 (4.50-11.00) K/uL Hgb 13.5 (13.5-17.5) gm/dL Hct 40.3 (37.0-53.0) % Plt Count 165 (140-440) K/uL BMP 11/13/23 11/13/23 11/13/23 15:05 15:05 15:05 Sodium Cancelled 141 Potassium Cancelled 3.2 L Chloride Cancelled Carbon Dioxide BUN Creatinine Glucose Calcium 11/13/23 11/13/23 11/13/23 15:05 15:05 15:05 Sodium Potassium Chloride 107 Carbon Dioxide Cancelled 27 BUN Cancelled 17 Creatinine Cancelled Glucose Calcium 11/13/23 11/13/23 11/13/23 15:05 15:05 15:05 Sodium Potassium Chloride Carbon Dioxide BUN Creatinine 0.8 Glucose Cancelled 118 H Calcium Cancelled 8.5 Cardiac Enzymes 11/13/23 Range/Units 15:05 Troponin I < 0.01 L (0.01-0.04) ng/mL Liver Function 11/13/23 Range/Units 15:05 Total Bilirubin 3.2 H (0.1-1.5) mg/dL Direct Bilirubin 0.2 (0.0-0.5) mg/dL AST 24 (12-35) U/L ALT 17 (4-50) U/L Alkaline Phosphatase 87 (40-150) U/L Albumin 3.8 (3.3-5.0) g/dL Assessment and Plan Assessment and plan (1) Acute subdural hematoma: Problem comment: - per formal radiology read of head CT on 11/12: 1. Thin 6 mm extra-axial collection along the right cerebral convexity, new from 11/11/2023, with discrete hyperdense and hypodense components, suggestive of subdural hematohygroma. 2. No skull fracture, midline shift, or herniation - ER physician reviewed with Neurosurgery, who did not recommend any followup imaging - continue neuro checks, follow clinically - discontinue Coumadin after risk and benefit discussion with patient and family Status: Acute (2) Syncope: Problem comment: - vs presyncope - concern for cardiac cause given history, ddx includes metabolic disturbance (hypokalemia/hypoglycemia), orthostatic hypotension, iatrogenic hypotension/bradycardia - less likely to be PE given anticoagulated status with therapeutic INR - follow on telemetry, repeat TTE, follow orthostatic vital signs - reduce dose of Metoprolol from 50mg --> 25mg, Lisinopril has been held since ER visit on 11/10 Status: Acute (3) CHF (congestive heart failure), NYHA class II: Problem comment: - with decreased LV function - last TTE in 2021: Final Impressions: 1. Normal LV size, moderately increased wall thickness, mildly reduced global systolic function with an estimated EF of 40 - 45%. 2. Abnormal septal motion consistent with RV pacemaker. 3. Moderately enlarged left atrium. 4. The aortic valve is trileaflet and sclerotic, no stenosis and no regurgitation. 5. The mitral valve is sclerotic, mild mitral regurgitation. 6. 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 7. Compared to the 2020 echo, the LV function has mildly declined. Status: Acute (4) Atrial fibrillation: Problem comment: - rate controlled on Metoprolol, on Coumadin (stopping 11/12) Status: Acute (5) Hypokalemia: Problem comment: - replace and follow, magnesium normal Status: Acute (6) DM2 (diabetes mellitus, type 2): Problem comment: - diet controlled, last A1C 6.19 May 2023 - accuchecks Status: Acute (7) Medication management: Problem comment: - Lisinopril d/c'd in [place] ED on 11/10 - decreasing dose of Metoprolol (50 --> 25mg) on 11/12 - consider addition of low dose Spironolactone for CHF and hypokalemia, pending clinical course and fluid balance - stopping Coumadin on 11/12 - decreasing dose of Synthroid from 100 --> 50mcg on 11/12 Status: Acute (8) Dysphagia: Problem comment: - noted over the past year, primarily with solids and larger pills - speech therapy consult ordered Status: Acute (9) Elevated bilirubin: Problem comment: - 3.2 on 11/12, has been elevated in the past on chart review - last Ab/Pelvis imaging in May 2022 (per chart review) revealed no hepatobiliary or pancreatic abnormalities - follow and consider outpatient workup Status: Acute (10) Hypothyroidism: Problem comment: - TSH has been 0.29-1.34 over the past 1-2 years - will decrease dose of Synthroid from 100 --> 50mcg (11/12) given age Status: Acute (11) Lower extremity edema: Problem comment: - 2/2 known CHF, currently on Lasix 40mg daily - consider addition of low dose Spironolactone pending fluid balance/clinical course Status: Acute Plan - per above - SCDs for ppx - daughter Gilma updated at bedside, questions answered
[2023-11-13] MEDS: POTASSIUM BICARB 25 MEQ EFFERVESCENT TAB PO ×2 (19:32→19:46)
[2023-11-13] MEDS: SODIUM CHLORIDE 0.9 % (FLUSH) 10 ML SYRINGE 5 ML IVF (21:17)
[2023-11-13 21:53] LABS: Appearance Urine Clear (Clear); Bilirubin Urine Negative (Negative); Blood Urine Trace-intact (Negative); Color Urine Yellow (Yellow); Glucose Urine Negative (Negative); Ketones Urine Negative (Negative); Leukocyte Esterase Urine Negative (Negative); Nitrite Urine Negative (Negative); Protein Urine Negative (Negative); Specific Gravity Urine 1.015 (1.000-1.030); pH Urine 7.5 (5.0-8.5)
[2023-11-13 22:20] LABS: RBC Urine 0-2 (0-2); WBC Urine 0-2 (0-5)
[2023-11-14 02:27] VITALS: BP 151/87; PULSE 70; RESP 16; TEMP 37; O2SAT 97
[2023-11-14 02:30] VITALS: BP 145/84; BP 145/87; BP 156/89; PULSE 74; PULSE 75
--- NOTE | 2023-11-14 04:10 | PC.NURSE ---
Pt rested well this night. Oriented x3. Ambulating IND. Stable on feet without difficulty using home walker. RN took Orthostatics this night showing little to no variation. Reporting Zero pain. VS unremarkable.
[2023-11-14] MEDS: LEVOTHYROXINE 50 MCG TABLET PO (06:43)
[2023-11-14 06:47] LABS: Basophils Absolute Auto 0.02 K/uL (0.00-0.30); Basophils Percent Auto 0.4 % (0.0-3.0); Eosinophils Absolute Auto 0.32 K/uL (0.00-0.50); Eosinophils Percent Auto 6.6 % (0.0-7.0); Hematocrit 37.8 % (37.0-53.0); Hemoglobin* 12.5 gm/dL (13.5-17.5); Immature Granulocytes Abs Auto 0.08 K/uL (0.00-0.30); Immature Granulocytes Pct Auto 1.7 %; Lymphocytes Absolute Auto 1.32 K/uL (0.90-2.90); Lymphocytes Percent Auto 27.4 % (20-44); Mean Corpuscular HGB Conc 33 gm/dL (32-36); Mean Corpuscular Hemoglobin 32 pg (26-34); Mean Corpuscular Volume 97 fL (80-100); Neutrophils Absolute Auto 2.55 K/uL (1.7-7.0); Neutrophils Percent Auto 52.9 % (42.0-72.0); Platelet Count* 148 K/uL (140-440); RDW Coefficient of Variation % 13.6 % (11.5-15.5); Red Blood Count 3.91 m/uL (4.30-5.90); White Blood Count* 4.82 K/uL (4.50-11.00)
[2023-11-14 06:50] LABS: Slide Review Reflex No
[2023-11-14 07:05] LABS: Albumin* 3.2 g/dL (3.3-5.0); Chloride* 108 mmol/L (96-114); Potassium* 3.2 mmol/L (3.6-5.1); Sodium* 139 mmol/L (135-149)
[2023-11-14 07:07] LABS: Creatinine* 0.6 mg/dL (0.5-1.5); Est. Creatinine Clearance* 51.06; Estimated Glomerular Filt Rate 93 ml/min
[2023-11-14 07:08] LABS: Alanine Aminotransferase* 15 U/L (4-50); Alkaline Phosphatase* 90 U/L (40-150); Anion Gap 1 mEq/L (7-15); Aspartate Amino Transferase* 21 U/L (12-35); Bilirubin Direct* 0.2 mg/dL (0.0-0.5); Bilirubin Total* 2.7 mg/dL (0.1-1.5); Blood Urea Nitrogen* 15 mg/dL (7-30); Calcium* 8.2 mg/dL (8.4-10.6); Carbon Dioxide* 30 mmol/L (20-32); Glucose* 103 mg/dL (60-115); Lipase* 45 U/L (23-300)
[2023-11-14 07:09] LABS: Magnesium* 2.1 mg/dL (1.5-2.6)
[2023-11-14 08:22] VITALS: RESP 18; O2SAT 95
[2023-11-14 08:31] VITALS: BP 146/88; BP 153/72; BP 174/116; PULSE 58; PULSE 70; PULSE 72
[2023-11-14] MEDS: POTASSIUM CHLORIDE 10 MEQ CAPSULE ER 20 MEQ PO (08:39)
[2023-11-14] MEDS: ATORVASTATIN CALCIUM 40 MG TABLET PO (08:41)
[2023-11-14] MEDS: FUROSEMIDE 20 MG TABLET 40 MG PO (08:41)
[2023-11-14] MEDS: METOPROLOL SUCCINATE (XL) 25 MG TAB PO (08:41)
[2023-11-14] MEDS: FINASTERIDE 5 MG TABLET PO (08:41)
[2023-11-14] MEDS: SODIUM CHLORIDE 0.9 % (FLUSH) 10 ML SYRINGE 5 ML IVF (08:43)
--- NOTE | 2023-11-14 11:26 | PC.NURSE ---
Dr Maradiaga gave me an update regarding the patient pending transfer to [place]. Nurse Diandra called the unit and I gave her report on the patient. The patients main symptom that persists intermittently is dizziness when at rest and HR variability with activity. [place] is ready for the patient and will go to room 5044 per the nurse. Non emergent EMS transfer to [place] is pending.. the unit was called and given an estimate on patient arrival time later this afternoon. Dorinda MAYEN BSN
--- NOTE | 2023-11-14 11:34 | PC.NURSE ---
Patients son Tremaine and and daughter Gilma were updated regarding the transfer to [place]. The unit and room number were given to the son Tremaine. Dorinda MAYEN BSN
--- NOTE | 2023-11-14 12:38 | REH.OT ---
OT/PT orders received and chart reviewed. Patient transferring to [facility] due to medical status, evals held.
--- NOTE | 2023-11-14 15:15 | PC.NURSE ---
The patient transferred to [facility] via non emergent EMS left the unit @1439. The patient was sent with IV in L forearm. All belongings were sent with the patient as well. Dorinda MAYEN BSN
--- NOTE | 2023-11-14 16:28 | PM.DS1 ---
DS: Providers Provider Date Seen: 11/14/23 Date of admission: 11/13/23 17:32 Primary care physician: Vasyl Hay MD Admitting Clinician: Myrna Sullivan MD Consults: 11/13/23 19:16 Consult to Physical Therapy [CONS] Routine Comment: Reason(s) for PT Consult:: Recent Falls Any Restrictions?:: No Restrictions 11/13/23 19:34 Consult to Physical Therapy [CONS] Routine Comment: Reason(s) for PT Consult:: Evaluate and Treat Any Restrictions?:: No Restrictions Consult to Speech Therapy [CONS] Routine Comment: Reason(s) for Speech Consult:: Swallowing Difficulty 11/13/23 19:36 Consult to Occupational Therapy [CONS] Routine Comment: Reason(s) for OT Consult:: Evaluate and Treat Any Restrictions?:: No Restrictions Attending Physician on discharge: Myrna Sullivan MD Date of Discharge: 11/14/23 DS: Diagnosis Discharge Diagnosis (1) Syncope: Status: Acute Problem details: - vs presyncope - concern for cardiac cause given history, ddx includes metabolic disturbance (hypokalemia/hypoglycemia), orthostatic hypotension, iatrogenic hypotension/bradycardia - less likely to be PE given anticoagulated status with therapeutic INR - follow on telemetry, repeat TTE, follow orthostatic vital signs - reduce dose of Metoprolol from 50mg --> 25mg, Lisinopril has been held since ER visit on 11/10 (2) Dizziness: Status: Acute (3) Malfunction of cardiac pacemaker: Status: Acute Problem details: During patient is short period of time in hospital from 11/13/2023 through 11/14/2023 it was noted that he was having frequent failure to capture of pacemaker signal with associated symptomatic bradycardia. I called and discussed the case with saw boss at [facility], Dr. Rosales, [facility] [place], who accepted the patient in transfer. Patient, son, Tremaine, daughter, Gilma, are all agreeable with above stated plans and recommendations. (4) Acute subdural hematoma: Status: Acute Problem details: - per formal radiology read of head CT on 11/12: 1. Thin 6 mm extra-axial collection along the right cerebral convexity, new from 11/11/2023, with discrete hyperdense and hypodense components, suggestive of subdural hematohygroma. 2. No skull fracture, midline shift, or herniation - ER physician reviewed with Neurosurgery, who did not recommend any followup imaging - continue neuro checks, follow clinically - discontinue Coumadin after risk and benefit discussion with patient and family (5) Atrial fibrillation: Status: Acute Problem details: - rate controlled on Metoprolol, on Coumadin (stopping 11/12) (6) CHF (congestive heart failure), NYHA class II: Status: Acute Problem details: - with decreased LV function - last TTE in 2021: Final Impressions: 1. Normal LV size, moderately increased wall thickness, mildly reduced global systolic function with an estimated EF of 40 - 45%. 2. Abnormal septal motion consistent with RV pacemaker. 3. Moderately enlarged left atrium. 4. The aortic valve is trileaflet and sclerotic, no stenosis and no regurgitation. 5. The mitral valve is sclerotic, mild mitral regurgitation. 6. 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 7. Compared to the 2020 echo, the LV function has mildly declined. (7) Medication management: Status: Acute Problem details: - Lisinopril d/c'd in [place] ED on 11/10 - decreasing dose of Metoprolol (50 --> 25mg) on 11/12 - consider addition of low dose Spironolactone for CHF and hypokalemia, pending clinical course and fluid balance - stopping Coumadin on 11/12 - decreasing dose of Synthroid from 100 --> 50mcg on 11/12 (8) Lower extremity edema: Status: Acute Problem details: - 2/2 known CHF, currently on Lasix 40mg daily - consider addition of low dose Spironolactone pending fluid balance/clinical course (9) Hypothyroidism: Status: Acute Problem details: - TSH has been 0.29-1.34 over the past 1-2 years - will decrease dose of Synthroid from 100 --> 50mcg (11/12) given age (10) Hypokalemia: Status: Acute Problem details: - replace and follow, magnesium normal (11) DM2 (diabetes mellitus, type 2): Status: Acute Problem details: - diet controlled, last A1C 6.19 May 2023 - accuchecks (12) Dysphagia: Status: Acute Problem details: - noted over the past year, primarily with solids and larger pills - speech therapy consult ordered (13) Elevated bilirubin: Status: Acute Problem details: - 3.2 on 11/12, has been elevated in the past on chart review - last Ab/Pelvis imaging in May 2022 (per chart review) revealed no hepatobiliary or pancreatic abnormalities - follow and consider outpatient workup DS: Summary Hospital Course Hospital Course: See notes above. Time Spent with Patient Time attestation: Total time spent providing and/or coordinating discharge services: Exam Narrative: Exam Narrative: GEN: Alert and answering questions appropriately, nontoxic HEENT: Wearing hearing aids, small laceration near R eyebrow. 4.5cm laceration over top of head that has been repaired with Dermabond and is hemostatic CV: Irregular with distant heart sounds and no concerning murmur R: LCTA bilaterally without concerning wheezing Ext: Hyperpigmentation of bilateral lower extremities consistent with PVD, 2+ symmetric pitting edema bilaterally Skin: Scattered bruising on extremities Neuro: No focal deficits on limited exam, no resting tremor Psych: Appropriate Telemetry today demonstrates multiple recurrent non capture of pacemaker signal with patient's symptom of lightheadedness and dizziness coinciding with these episodes of non capture. Const: Vital Signs, click to edit/add: Vital Signs - 24 hr 11/13/23 16:32 11/13/23 16:33 11/13/23 16:45 Temperature Pulse Rate 74 72 70 Pulse Rate [Left P ulse Oximeter] Pulse Rate [orthos tatic lying Apical ] Pulse Rate [orthos tatic sitting] Pulse Rate [orthos tatic standing Api linda] Respiratory Rate Blood Pressure 147/94 H Blood Pressure [Ri ght Arm] Blood Pressure [or thostatic lying Ri ght Arm] Blood Pressure [or thostatic sitting Right Arm] Blood Pressure [or thostatic standing ] Pulse Oximetry 98 98 98 Oxygen Delivery Me thod 11/13/23 17:00 11/13/23 17:01 11/13/23 17:15 Temperature Pulse Rate 69 70 70 Pulse Rate [Left P ulse Oximeter] Pulse Rate [orthos tatic lying Apical ] Pulse Rate [orthos tatic sitting] Pulse Rate [orthos tatic standing Api linda] Respiratory Rate Blood Pressure 161/93 H Blood Pressure [Ri ght Arm] Blood Pressure [or thostatic lying Ri ght Arm] Blood Pressure [or thostatic sitting Right Arm] Blood Pressure [or thostatic standing ] Pulse Oximetry 99 98 98 Oxygen Delivery Me thod 11/13/23 17:30 11/13/23 18:42 11/13/23 18:42 Temperature 98.5 F Pulse Rate 71 Pulse Rate [Left P ulse Oximeter] 88 Pulse Rate [orthos tatic lying Apical ] Pulse Rate [orthos tatic sitting] Pulse Rate [orthos tatic standing Api linda] Respiratory Rate 16 16 Blood Pressure Blood Pressure [Ri ght Arm] 154/98 H Blood Pressure [or thostatic lying Ri ght Arm] Blood Pressure [or thostatic sitting Right Arm] Blood Pressure [or thostatic standing ] Pulse Oximetry 99 99 99 Oxygen Delivery Me thod Room Air Room Air 11/13/23 22:34 11/13/23 22:36 11/13/23 22:38 Temperature 98.4 F Pulse Rate Pulse Rate [Left P ulse Oximeter] 70 70 Pulse Rate [orthos tatic lying Apical ] Pulse Rate [orthos tatic sitting] Pulse Rate [orthos tatic standing Api linda] Respiratory Rate 16 16 Blood Pressure Blood Pressure [Ri ght Arm] 127/81 Blood Pressure [or thostatic lying Ri ght Arm] Blood Pressure [or thostatic sitting Right Arm] Blood Pressure [or thostatic standing ] Pulse Oximetry 98 Oxygen Delivery Me thod Room Air Room Air 11/14/23 02:27 11/14/23 02:30 11/14/23 08:22 Temperature 98.6 F Pulse Rate Pulse Rate [Left P ulse Oximeter] 70 Pulse Rate [orthos tatic lying Apical ] 75 Pulse Rate [orthos tatic sitting] 74 Pulse Rate [orthos tatic standing Api linda] 75 Respiratory Rate 16 18 Blood Pressure Blood Pressure [Ri ght Arm] 151/87 H Blood Pressure [or thostatic lying Ri ght Arm] 145/87 H Blood Pressure [or thostatic sitting Right Arm] 145/84 H Blood Pressure [or thostatic standing ] 156/89 H Pulse Oximetry 97 95 Oxygen Delivery Me thod Room Air Room Air 11/14/23 08:31 Temperature Pulse Rate Pulse Rate [Left P ulse Oximeter] Pulse Rate [orthos tatic lying Apical ] 70 Pulse Rate [orthos tatic sitting] 72 Pulse Rate [orthos tatic standing Api linda] 58 L Respiratory Rate Blood Pressure Blood Pressure [Ri ght Arm] Blood Pressure [or thostatic lying Ri ght Arm] 146/88 H Blood Pressure [or thostatic sitting Right Arm] 153/72 H Blood Pressure [or thostatic standing ] 174/116 H Pulse Oximetry Oxygen Delivery Me thod DS: Data Data Completed and Pending Labs on day of discharge: Labs from last 24 hours 11/14/23 11/13/23 11/13/23 05:27 21:45 16:57 WBC 4.82 RBC 3.91 L Hgb 12.5 L Hct 37.8 MCV 97 MCH 32 MCHC 33 RDW Coeff of [place] 13.6 Plt Count 148 Neut % (Auto) 52.9 Lymph % (Auto) 27.4 [place] % (Auto) 11.0 Eos % (Auto) 6.6 Baso % (Auto) 0.4 Neut # (Auto) 2.55 Lymph # (Auto) 1.32 [place] # (Auto) 0.50 Eos # (Auto) 0.32 Baso # (Auto) 0.02 Abs Immat Gran (auto) 0.08 Imm/Tot Granulo (auto) 1.7 INR Sodium 139 Potassium 3.2 L Chloride 108 Carbon Dioxide 30 Anion Gap 1 L BUN 15 Creatinine 0.6 Estimated Creat Clear 51.06 Estimated GFR 93 Glucose 103 Calcium 8.2 L Magnesium 2.1 Total Bilirubin 2.7 H Direct Bilirubin 0.2 AST 21 ALT 15 Alkaline Phosphatase 90 Total Protein 6.0 Albumin 3.2 L Lipase 45 TSH 1.200 Urine Color Yellow Urine Appearance Clear Urine pH 7.5 Ur Specific [place] 1.015 Urine Protein Negative Urine Glucose (UA) Negative Urine Ketones Negative Urine Blood Trace-intact A Urine Nitrite Negative Urine Bilirubin Negative Urine Urobilinogen 2.0 A Ur Leukocyte Esterase Negative Urine RBC 0-2 Urine WBC 0-2 Ur Squamous Epith Cells None Urine Bacteria None Lab Acknowledgement Test Added 11/13/23 15:05 WBC RBC Hgb Hct MCV MCH MCHC RDW Coeff of [place] Plt Count Neut % (Auto) Lymph % (Auto) [place] % (Auto) Eos % (Auto) Baso % (Auto) Neut # (Auto) Lymph # (Auto) [place] # (Auto) Eos # (Auto) Baso # (Auto) Abs Immat Gran (auto) Imm/Tot Granulo (auto) INR 2.25 H Sodium Potassium Chloride Carbon Dioxide Anion Gap BUN Creatinine Estimated Creat Clear Estimated GFR Glucose Calcium Magnesium Total Bilirubin Direct Bilirubin AST ALT Alkaline Phosphatase Total Protein Albumin Lipase TSH Urine Color Urine Appearance Urine pH Ur Specific [place] Urine Protein Urine Glucose (UA) Urine Ketones Urine Blood Urine Nitrite Urine Bilirubin Urine Urobilinogen Ur Leukocyte Esterase Urine RBC Urine WBC Ur Squamous Epith Cells Urine Bacteria Lab Acknowledgement Preliminary micro results at discharge 11/13/23 21:45 Urine Culture - Preliminary Urine,Clean Catch Culture in Progress Discharge Plan Discharge Disposition: [facility] Discharge Location: [facility] Date of Admission: 11/13/23 17:32 Attending Provider on Discharge: Pablito Cowart Primary Care Provider: Vasyl Hay Condition: Guarded Discharge Orders: Transfer of Care to Other Hospital (ORDER); Ordered 11/14/23 Ordered By: Pablito Cowart Discharge Comments: During patient's brief hospitalization it was noted that he was having frequent failure to capture of pacemaker signal with resultant symptomatic bradycardia. I called and discussed case with Dr. Rosales, saw boss, [facility], who accepted the patient in transfer for further testing and management. Patient agreeable. Patient's son, Tremaine, and daughter, Gilma, were also agreeable to above stated plans and recommendations. Oxygen: No Urinary Catheter: No Drips/Lines: None Services not available here: Cardiology services, electrophysiology Services.
== END 2023-11-14 14:39 | disposition short-term general hospital (02) ==
LOC: ED 17:04 → MEDSURG 17:33
PROVIDERS: Admitting Provider Family Medicine; Emergency Provider Family Medicine; PCP Family Medicine; Visit Provider Family Medicine
DX: S06.5XAA Traumatic subdural hemorrhage with loss of consciousness status unknown, initial encounter (principal); T82.111A Breakdown (mechanical) of cardiac pulse generator (battery), initial encounter; R55 Syncope and collapse; R00.1 Bradycardia, unspecified; E87.6 Hypokalemia; E80.6 Other disorders of bilirubin metabolism; R42 Dizziness and giddiness; I95.89 Other hypotension; R13.10 Dysphagia, unspecified; I48.91 Unspecified atrial fibrillation; I50.9 Heart failure, unspecified; R60.0 Localized edema; R29.6 Repeated falls; E03.9 Hypothyroidism, unspecified; E11.9 Type 2 diabetes mellitus without complications; I10 Essential (primary) hypertension; E78.5 Hyperlipidemia, unspecified; G47.33 Obstructive sleep apnea (adult) (pediatric); R35.89 Other polyuria; M47.812 Spondylosis without myelopathy or radiculopathy, cervical region; I51.7 Cardiomegaly; I34.0 Nonrheumatic mitral (valve) insufficiency; W19.XXXA Unspecified fall, initial encounter; H91.90 Unspecified hearing loss, unspecified ear; Z51.81 Encounter for therapeutic drug level monitoring; Z79.01 Long term (current) use of anticoagulants; Z79.899 Other long term (current) drug therapy; Z98.52 Vasectomy status; Z87.891 Personal history of nicotine dependence; Z97.4 Presence of external hearing-aid; Z95.0 Presence of cardiac pacemaker; Z87.19 Personal history of other diseases of the digestive system; Z98.890 Other specified postprocedural states; Z66 Do not resuscitate
CPT/HCPCS: 36415; 70450; 72125; 80048; 80076; 81001; 83605; 83690; 83735; 83880; 84443; 84484; 85025; 85610; 86140; 87086; 87631; 93005; 94761; 99285; G0378; A9270

== ENCOUNTER 2023-11-14 14:31 | Outpatient (CLI) | payer MEDICARE, BC, SELFPAY | END 2023-11-14 14:32 | disposition home or self-care (01) | LOC: AMB 11-20 17:49 | PROVIDERS: PCP Family Medicine; Visit Provider Family Medicine | DX: I49.9 Cardiac arrhythmia, unspecified (principal); T82.111A Breakdown (mechanical) of cardiac pulse generator (battery), initial encounter | CPT/HCPCS: A0425; A0427 ==

== ENCOUNTER 2024-08-14 21:04 | Observation (INO) | payer MEDICARE, BC, SELFPAY ==
[2024-08-14] VITALS (15 sets, daily range): BP systolic 107–177; BP diastolic 58–100; PULSE 70–112; RESP 12–26; TEMP 37.2–37.7; O2SAT 93–97; BMI 30.8
--- OUTSIDE RECORDS SUMMARY | 2024-08-14 21:07 | XMS_ITS | Clinical Summary ---
Author Organization [employer] [facility] Address [address] [place] [address] Care Team Providers Care Elementary Reading Tutor Name Role Phone Vasyl Hay MD Primary Care Provider Allergies Active Allergy Reactions Criticality Noted Date Comments Penicillins Rash Penicillin V Rash Low 06/02/2016 Medications cholecalciferol (VITAMIN D3) 1,000 unit tabletIndications: Cardiac pacemaker in situ Take 2,000 units by mouth once daily. 0 02/09/20 14 Active acetaminophen (TYLENOL EXTRA STRGTH) 500 mg tabletIndications: pain Take 500-1,000 mg by mouth every 6 hours if needed for Pain. Max acetaminophen dose: 4000mg in 24 hrs. 0 05/25/19 21 Active metoprolol succinate (TOPROL XL) 25 mg Sustained-Release tabletIndications: Dilated cardiomyopathy (HC) Take 1 Tablet (25 mg) by mouth once daily. 90 Tablet 3 12/31/19 24 Active furosemide (LASIX) 20 mg tabletIndications: edema Take 2 Tablets (40 mg) by mouth once daily in the morning. 180 Tablet 3 02/15/20 24 Active potassium chloride (KLOR-CON M20) 20 mEq extended-release tablet (part/cryst)Indica tions:Hypokalemia Take 1 Tablet (20 mEq) by mouth once daily. 90 Tablet 2 04/04/20 24 Active atorvastatin (LIPITOR) 40 mg tabletIndications: Mixed hyperlipidemia Take 1 Tablet (40 mg) by mouth once daily with evening meal. 90 Tablet 3 06/08/19 25 Active finasteride (PROSCAR) 5 mg tabletIndications: Gross hematuria Take 1 Tablet (5 mg) by mouth once daily in the morning. 90 Tablet 3 06/08/19 25 Active levothyroxine (SYNTHROID) 100 mcg tabletIndications: Acquired hypothyroidism Take 1 Tablet (100 mcg) by mouth before breakfast. 90 Tablet 3 06/08/19 25 Active warfarin (COUMADIN) 5 mg tabletIndications: Paroxysmal atrial fibrillation (HC),Anticoagulati on monitoring, INR range 2-3 Take by mouth 5 mg (5 mg x 1) every Mon; 2.5 mg (5 mg x 0.5) all other days in the evening OR as directed 52 Tablet 06/16/19 25 Active clotrimazole-betam ethasone 1%-0.05% creamIndications:T inea cruris Apply topically to affected area(s) two times daily. 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 08/31/2012 Sensorineural hearing loss, bilateral 08/18/2012 AN 05/21/2011 AHI-17, REM-49 -- all supine 2011 Carotid artery stenosis 09/12/2010 Paroxysmal atrial fibrillation 08/27/2010 Mixed hyperlipidemia 03/28/2010 CVA (cerebral infarction) 11/05/2009 Degeneration of cervical intervertebral disc Essential hypertension Cardiomegaly AVB (atrioventricular block) Overview (10/09/2009): -associated near syncope Resolved Problems Problem Noted Date Diagnosed Date Resolved Date Subdural hematoma 11/14/2023 06/08/2024 Venous stasis ulcer of left calf, unspecified ulcer stage, unspecified whether varicose veins present 07/24/2022 12/02/2022 Venous stasis ulcer of left calf 08/17/2020 06/07/2021 Varicose veins of left lower extremity with ulcer of calf (CODE) 06/04/2020 06/07/2021 COVID-19 virus detected 05/25/202011/15 Skin tear of right elbow without complication 08/15/19 20 11/21/2021 Contusion of right chest wall 08/15/2019 06/07/2021 Skin ulcer 05/24/2019 06/04/2020 Incarcerated left inguinal hernia 01/12/2017 06/07/2021 Obstipation 01/12/2017 12/30/2017 Seborrhea 09/21/2015 06/04/2023 Encounter for long-term (cur rent) use of anticoagulants 08/27/2010 08/03/2013 Overview (09/16/2010): INR Goal Range: 2.0 - 3.0 Impaired fasting glucose 07/13/200910/2015 Hypothyroidism 09/21/2015 Other abnormal glucose 07/13 Gout 09/21/2015 Dual Chamber Pacemaker 10/08/2009 06/04/2020 Near Syncope 09/200906/07/19 22 Encounters Date Type Department Care Team Description 08/11/2024 9:39 AM CDT - 08/11/2024 11:59 PM CDT Hospital Encounter [facility] [address] [place] [address] Yola Crook DO Gross hematuria 08/11/2024 Travel 08/09/2024 Telephone [facility] [address] [place] [address] Yola Crook DO Medication Management (medications prior to CT on 08/11/2024) 08/09/2024 Telephone [facility] [address] [place] [phone] Jerrell Allison MD Results (Labs) 07/28/2024 12:30 PM CDT Office Visit [facility] [address] [place] [address] Jerrell Allison MD Follow Up (Blood in urine) 07/28/2024 Travel 07/14/2024 Anticoagulation (warfarin) [facility] [address] [facility] [address], [facility] Anticoagulation 07/13/2024 11:30 AM READING AIDE Office Visit [address] [place] [address] Yola Crook, Follow Up (sore on bottom and wart on nose/) 07/13/2024 Travel 06/29/2024 2:15 PM READING AIDE Office Visit [address] [address] Yola Crook DO Hematuria; Derm Problem (sore on tailbone) 06/29/2024 Anticoagulation (warfarin) [address] [address], [facility] Anticoagulation 06/29/2024 Telephone [facility] [address] [place] [address] Jerrell Allison MD Appointment Request 06/29/2024 Travel 06/29/2024 Nurse Triage [address] [address] Vasyl Hay MD Hematuria 06/16/[address] [address] Vasyl Hay MD Refill Request (Warfarin) 06/08/2024 10:30 AM READING AIDE Office Visit [address] [address] Vasyl Hay MD Medication Management 06/08/2024 10:15 AM READING AIDE Orders Only [address] [address] Lab, [facility] 06/08/2024 Anticoagulation (warfarin) [address] [address] 1, [facility] Anticoagulation (OV) 06/08/2024 Travel from Last 3 Months Immunizations Immunization Administration Dates Next Due AMB Influenza, IIV3 (Age >=3 years)(Flu Clinic Only) 03/29/2008 Amb Influenza, Inactivated A IIV4 (Age 65+ Years) Preserv Free 02/10/2020 COVID-19 VACCINE SPIKEVAX (M ODERNA 50MCG/0.5ML) 12YO+ PFS 02/15/2024,06/04/2023 COVID-19 vaccine (Pfizer-Bio NTech 30mcg/0.3mL) 12YO+ BIVALENT PF, MDV 12/02/2022,04/29/2022 COVID-19 vaccine (Pfizer-Bio NTech 30mcg/0.3mL) 12YO+ CLINTON-SUCROSE PF, MDV 10/11/2021 COVID-19 vaccine (Pfizer-Bio NTech 30mcg/0.3mL) PF, MDV 02/28/2021,07/24/2020,07/03/2020 Influenza A (H1N1), Inactivated 06/07/2009 Influenza A (H1N1), Inactiva fernanda (Age >=3 Years) 06/07/2009 Influenza Virus, Unspecified 02/15/2015 Influenza, High-dose Inactivated 04/15/2018,03/18,02/08/2014 Influenza, IIV3 (Age 6-35 mos) 02/06/2011 Influenza, IIV3 (Age >=3 years) 02/23/20 13,02/06/2011,02/22/2009,2006,02/26/2006 Influenza, Inactivated AIIV4 (Age 65+ Years) Preserv Free 06/04/2023,04/29/2022,02/28/2021 Influenza, Inactivated IIV3 (Age 65+ Years) Preserv Free 02/15/2024,02/08/2019,02/16/2017 Pneumococcal Conj 20-valent (Prevnar 20) 06/10/2022 Pneumococcal Poly,23-Valent (Pneumovax) 02/26/2006 Pneumococcal conj 13-Valent (Prevnar 13) 03/30/2015 Td (Age >=7 Years) 12/23/2001 Tdap 12/30/2021,11/20/2011 Varicella Vaccine 02/15/2015 Family History Medical History Relation Name Comments Heart Disease Father Hypertension Father Relation Name Status Comments Father Mother Social History Tobacco Use Types Packs/Day Years Used Date Smoking Tobacco: Former Cigarettes 1.5 5 0 05/18/1974 - 05/18/1979 Smokeless Tobacco: Never Tobacco Cessation:Counseling Given: No Alcohol Use Standard Drinks/Week Comments No 0 (1 standard drink = 0.6 oz pur e alcohol) PHQ-2 Answer Date Recorded PHQ-2 TOTAL SCORE 0 06/04/2023 Social Connections Answer Date Recorded Do you often feel lonely or isolated from those around you? 0 12/31/2023 Financial Resource Strain Answer Date R ecorded Difficulty of Paying Living Expenses 3 11/11/2023 Difficulty of Paying Living Expenses Not on file 11/11/2023 Food Insecurity Answer Date Recorded Do you worry your food will run out before you are able to buy more? 1 12/31/2023 Transportation Needs Answer Date Record ed Does lack of transportation keep you from medica l appointments? 1 12/31/2023 Does lack of transportation keep you from work, meetings or getting things that you need? 1 12/31/2023 Housing Stability Answer Date Recorded What is your housing situation today? 1 12/31/2023 Interpersonal Safety Answer Date Record ed Are you being hit, kicked, p ushed or yelled at (see row info)? No 11/14/2023 Interpersonal Safety Abuse 12 - 18 Not on file 11/14/2023 Interpersonal Safety Ambulatory Vulnerability No t on file 11/14/2023 Utilities Answer Date Recorded Do you have trouble paying f or utilities (for example, heat, electricity, water, phone)? 1 12/31/2023 Sex and Gender Information Value Date Recorded Sex Assigned at Not on file Legal Sex Male 5:48 AM READING AIDE Gender Identity Not on file Sexual Orientation Not on file Obstetrics History Last Filed Vital Signs Vital Sign Reading Time Taken Comments Blood Pressure 126/70 07/28/2024 12:18 PM CDT Pulse 60 07/28/2024 12:18 PM CDT Temperature 36.3 C (97.4 F) 06/29/2024 2:28 PM READING AIDE Respiratory Rate 17 11/24/2023 8:11 AM CDT Oxygen Saturation 98% 07/13/2024 11:43 AM READING AIDE Inhaled Oxygen Concentration - - Weight 96.8 kg (213 lb 8 oz) 07/28/2024 12:18 PM CDT Height 182.9 cm (6' 0.01) 11/16/2023 4:00 AM CD T Body Mass Index 28.95 11/16/2023 4:00 AM CDT Plan of Treatment Upcoming Encounters Date Type Department Care Team (Late st Contact Info) Description 11/07/2024 10:30 AM CDT Office Visit [facility] [address] [place] [address] Vasyl Hay MD [address] [place] [address] Health Maintenance Due Date Last Done Comments Zoster (shingles) series for age 50+ (1 of 2) 1985 RSV vaccine for adults or (1 - 1-dose 75+ series) 2010 BMI (ht and wt on same day) for age 18+ 06/04/2024 06/04/2023, 04/17/2022, 06/07/2021, Additional history exists Depression screening for age 12+ 06/04/2024 06/04/2023, 06/13/2022, 06/11/2022, Additional history exists Medicare Wellness for age 65+ 06/04/2024, 06/07/2021, 06/23/2017 COVID-19 vaccine series ( season) 2024 02/15/2024, 06/04/2023, 12/02/2022, Additional history exists Tetanus booster 12/31/2031 12/30/2021, 07/0 09/2011, 12/23/2001 Tdap Completed 12/30/2021, 11/20/2011 Pneumococcal series for age 50+ Completed 06/10/2022, 03/30/2015, 02/26/2006 Influenza Vaccine Completed 02/15/2024, , 04/29/2022, Additional history exists Medical Devices Implanted Type Area Acute Specialist Device Identifier Shelf Expiration Date Model / Serial / Lot Standard Pacemaker-09/16 Implanted: by Bartolo Orantes MD (Quantity not on file) Standard Pacemaker [employer] 2110 / [id number] / Procedures Procedure Name Priority Date/Time Associated Diagnosis Comments CT ABDOMEN PELVIS UROGRAM WWO Routine 08/11/2024 10:25 AM CDT Gross hematuria PATH URINE CYTOLOGY Routine 07/28/2024 1 2:40 PM CDT Hematuria, unspecified type HEMOGLOBIN A1C MONITORING (POCT) Routine 07/13/2024 12:26 PM READING AIDE Type 2 diabetes mellitus without complication, without long-term current use of insulin (HC) PROTIME-INR Routine 07/13/2024 12:24 PM READING AIDE Paroxysmal atrial fibrillation (HC) Anticoagulation monitoring, INR range 2-3 URINE ALBUMIN TO CREATININE RATIO, RANDOM Routine 07/13/2024 12:24 PM READING AIDE Type 2 diabetes mellitus without complication, without long-term current use of insulin (HC) INR,POCT Routine 06/29/2024 3:40 PM READING AIDE Gross hematuria Anticoagulation monitoring, INR range 2-3 URINALYSIS MACROSCOPIC - [facility] ONLY POC DIP ([facility]) Routine 06/29/2024 2:30 PM READING AIDE Gross hematuria URINALYSIS MICROSCOPIC Routine 06/29/2024 2:29 PM READING AIDE Gross hematuria HEMOGLOBIN A1C MONITORING (POCT) Routine 06/08/2024 10:12 AM READING AIDE Type 2 diabetes mellitus without complication, without long-term current use of insulin (HC) BASIC METABOLIC PANEL Routine 06/08/2024 10:12 AM READING AIDE Type 2 diabetes mellitus without complication, without long-term current use of insulin (HC) TSH WITH REFLEX Routine 06/08/2024 10:12 AM READING AIDE Acquired hypothyroidism URINE ALBUMIN TO CREATININE RATIO, RANDOM Routine 06/08/2024 10:11 AM READING AIDE Type 2 diabetes mellitus without complication, without long-term current use of insulin (HC) PROTIME-INR Routine 06/08/2024 10:11 AM READING AIDE Paroxysmal atrial fibrillation (HC) Anticoagulation monitoring, INR range 2-3 from Last 3 Months Results * CT ABDOMEN PELVIS UROGRAM WWO (08/11/2024 10:25 AM CDT) Anatomical Region Laterality Modality Abdomen, Pelvis, KIDNEYS, BLADDER Computed Tomography 08/11/2024 11:0 8 AM CDT Impressions 08/11/2024 11:08 AM CDT 1. 6 mm calculi in the right renal pelvis has migrated in position from the previous 2 studies without causing pyelo caliectasis. No other urinary tract calculi. 2. Small cortical hypodensity left kidney likely a cyst is unchanged. No other interval abnormality of the kidneys/ureters. 3. Prostatomegaly. Bladder obscured by streak artifact from left hip arthroplasty. No obvious bladder abnormality. 4. Fat present in a right inguinal hernia. Large bilateral scrotal hydroceles. 5. Diverticulosis. Prominent stool burden. No inflammation or obstruction. 6. Cholecystectomy. Severe degenerative scoliosis. Please note that all CT scans at this facility use dose modulation, iterative reconstruction, and/or weight-based dosing when appropriate to reduce radiation dose to as low as reasonably achievable. Dictated by Aakash Hendrix MD @ 08/11/2024 11:08:11 AM (Electronically Signed) Narrative 08/11/2024 11:08 AM CDT For Patients: As a result of the Century Cures Act, medical imaging exams and procedure reports are released immediately into your electronic medical record. You may view this report before your referring provider. If you have questions, please contact your health care provider. INDICATION: Gross hematuria TECHNIQUE: CT abdomen and pelvis urogram without and with IV contrast. Contrast images were obtained in the nephrographic and delayed phases. COMPARISON: CT urogram 05/26/[address] abdomen pelvis without contrast 10/11/2021 FINDINGS: Lower chest: Cardiomegaly with pacemaker leads. Linear scarring at the lung bases unchanged. Liver: Unremarkable. Spleen: Unremarkable. Pancreas: Unremarkable. Gallbladder and bile ducts: Cholecystectomy. Kidneys: Redemonstrated 6 mm calculi in the nondilated right renal pelvis has migrated in position from the 2 previous studies without causing pyelo caliectasis. No calculi left kidney, either ureter or bladder. Partial duplex collecting system on the right. Small cortical hypodensity on the left () likely a small cyst is unchanged. No hydronephrosis, suspicious renal mass or acute renal cortical destruction. Adrenal glands: Unremarkable. GI tract: Vascular structures: Aorta heavily calcified. No aneurysm. Prominent stool. Diverticulosis. No inflammation or obstructive pattern. Lymph nodes: No lymphadenopathy. Miscellaneous: Unremarkable. No free air or significant free fluid. Pelvic Organs: Bladder obscured by streak artifacts in the left hip arthroplasty. Prostatomegaly. Fat present in a right inguinal hernia. Large bilateral scrotal hydroceles. Bones: Scoliosis with severe chronic degenerative disc disease. Procedure Note Wale Hendrix MD - 08/11/2024 For Patients: As a result of the Cures Act, medical imagingexams and procedure reports are released immediately into your electronicmedical record. You may view this report before your referring provider.If you have questions, please contact your health care provider. INDICATION: Gross hematuria TECHNIQUE: CT abdomen and pelvis urogram without and with IV contrast. Contrastimages were obtained in the nephrographic and delayed phases. COMPARISON: CT urogram 05/26/[address] abdomen pelvis without contrast 10/11/2021 FINDINGS: Lower chest: Cardiomegaly with pacemaker leads. Linear scarring at thelung bases unchanged. Liver: Unremarkable. Spleen: Unremarkable. Pancreas: Unremarkable. Gallbladder and bile ducts: Cholecystectomy. Kidneys: Redemonstrated 6 mm calculi in the nondilated right renal pelvishas migrated in position from the 2 previous studies without causing pyelocaliectasis. No calculi left kidney, either ureter or bladder. Partial duplex collecting system on the right. Small cortical hypodensityon the left (6/) likely a small cyst is unchanged. No hydronephrosis, suspicious renal mass or acute renal corticaldestruction. Adrenal glands: Unremarkable. GI tract: Vascular structures: Aorta heavily calcified. No aneurysm. Prominentstool. Diverticulosis. No inflammation or obstructive pattern. Lymph nodes: No lymphadenopathy. Miscellaneous: Unremarkable. No free air or significant free fluid. Pelvic Organs: Bladder obscured by streak artifacts in the left hiparthroplasty. Prostatomegaly. Fat present in a right inguinal hernia.Large bilateral scrotal hydroceles. Bones: Scoliosis with severe chronic degenerative disc disease. IMPRESSION: 1. 6 mm calculi in the right renal pelvis has migrated in position fromthe previous 2 studies without causing pyelo caliectasis. No other urinarytract calculi. 2. Small cortical hypodensity left kidney likely a cyst is unchanged. Noother interval abnormality of the kidneys/ureters. 3. Prostatomegaly. Bladder obscured by streak artifact from left hiparthroplasty. No obvious bladder abnormality. 4. Fat present in a right inguinal hernia. Large bilateral scrotalhydroceles. 5. Diverticulosis. Prominent stool burden. No inflammation or obstruction. 6. Cholecystectomy. Severe degenerative scoliosis. Please note that all CT scans at this facility use dose modulation,iterative reconstruction, and/or weight-based dosing when appropriate toreduce radiation dose to as low as reasonably achievable. Dictated by Aakash Hendrix MD @ 08/11/2024 11:08:11 AM (Electronically Signed) us Yolacedric Reis Armaan DO CT Final Resul t * PATH URINE CYTOLOGY (07/28/2024 12:40 PM CDT) Case Report Medical Cytology Report Case: [id number] Authorizing Provider: Jerrell Allison MD Collected: 07/28/2024 1240 Ordering Location: [facility] Received: 07/28/2024 1341 Clinic Pathologist: Russ Reinoso Jr., MD Specimen: Urine Void 07/29/2024 2:40 PM CDT [facility] Final Diagnosis URINE FOR CYTOLOGY: Atypical urothelial cells 07/29/2024 2:40 PM CDT [facility] at 1440 CDT Comment According to the Viviana system of reporting urinary tract cytology, the diagnosis of atypical urothelial cells indicates the sample contains non-degenerated urothelial cells with an increased nuclear cytoplasmic ratio of greater than 0.5 and at least one of the following features: hyperchromasia, irregular coarse, clumped chromatin or irregular nuclear membranes. The risk of detecting biopsy-proven high grade urothelial carcinoma following this diagnosis ranges from 8.3% to 37.5%. If reflex FISH testing was requested for this specimen, FISH testing will be performed, and the results will be reported in an addendum. 07/29/2024 2:40 PM CDT [facility] Clinical Information Hematuria 07/29/2024 2:40 PM CDT [facility] Gross Description A) SOURCE: Urine, Voided The specimen consists of 90 cc of red cloudy fluid from which the following is prepared: -1 Papanicolaou stained ThinPrep slide 07/29/2024 2:40 PM CDT [facility] Microscopic Description All slides were reviewed microscopically. Specimen adequacy: Adequate for interpretation. The microscopic appearance substantiates the diagnosis. 07/29/2024 2:40 PM CDT [facility] Additional Information Cytology is screened at [facility] - [address] [address] and [facility] - [address] [place] [address] and [facility] - [address] [place] [address] Interpreted at [facility] - [address], [place] [address] 07/29/2024 2:40 PM CDT [facility] Urine URINE SPECIMEN / Unknown Non-Blood / Unknown 07/28/2024 12:40 PM CDT 07/28/2024 1:41 PM CDT us Jerrell Allison MD PATHOLOGY/CYTOLOGY Final Resul t [facility] [address] [place] [address], * (ABNORMAL) HEMOGLOBIN A1C MONITORING (POCT) (07/13/2024 12:26 PM READING AIDE) Only the most recent of2 resultswithin the time period is included. POC HEMOGLOBIN A1C 6.5(H) <6.0 % OF TOTAL HGB [facility] Comment: Any point of care results exhibiting inconsistency with the patient's clinical status should be repeated using a different testing method. Blood BLOOD SPECIMEN / Unknown 07/13/2024 12:26 PM READING AIDE 07/13/2024 12:29 PM READING AIDE Narrative [facility] - 07/13/2024 12:38 PM READING AIDE FASTING:YES FASTING: YES Vasyl Hay MD CHEMISTRY Final Result [facility] [address] [place] [address], [facility] [address] [place] [address] * (ABNORMAL) URINE ALBUMIN TO CREATININE RATIO, RANDOM (07/13/2024 12:24 PM READING AIDE) Only the most recent of2 resultswithin the time period is included. ALB RAND URINE 103.0 mg/L 07/14/2024 12:40 AM READING AIDE [facility] CREATININE,URIN E 1.11 g/L 07/14/2024 12:40 AM READING AIDE [facility] ALBUMIN TO CREATININE RATIO,RAND UR 92.8(H) <30.0 mg/g creat 07/14/2024 12:40 AM READING AIDE [facility] Urine URINE SPECIMEN / Unknown Non-Blood / Unknown 07/13/2024 12:24 PM READING AIDE 07/13/2024 12:24 PM [facility]ING AIDE [facility] 07/14/2024 12:40 AM READING AIDE If Albumin to Creatinine Ratio is elevated, consider the following: Elevations seen with incipient nephropathy associated with diabetes mellitus or hypertension. Stress, exercise,hematuria, and urinary tract infection may also produce elevated results. If clinically indicated, confirm with 24 Hour Albumin to Creatinine Ratio. us Vasyl Hay MD URINE Final Result Performing Organization Address [facility] de Phone Number [facility] [address] [address], [place] * (ABNORMAL) PROTIME-INR [[id number]] - Standing Order (07/13/2024 12:24 PM READING AIDE) Only the most recent of2 resultswithin the time period is included. INR 3.0(H) <1.3 07/13/2024 10:35 PM READING AIDE [facility] PROTIME 34.5(H) 10.6 - 12.4 sec 07/13/2024 10:35 PM READING AIDE [facility] Blood BLOOD SPECIMEN / Unknown [facility] / Unknown 07/13/2024 12:24 PM READING AIDE 07/13/2024 12:24 PM READING AIDE Narrative [facility] - 07/13/2024 10:35 PM READING AIDE Therapeutic Range 2.0-3.0 for most anticoagulated patients 2.5-3.5 or 4.0 for high risk patients The INR is only used for patients on stable oral anticoagulant therapy. It makes no significant contribution to the diagnosis or treatment of patients whose Protime is prolonged for other reasons. INR results are increased when heparin levels exceed 1.0 U/mL, which corresponds to an aPTT >125 seconds if the patient is on UFH. Vasyl Hay MD HEMATOLOGY Final Result Performing Organization Address [facility] de Phone Number [facility] [address] [address], [place] * (ABNORMAL) INR,POCT (06/29/2024 3:40 PM READING AIDE) INR 2.5(H) ratio [facility] Comment: INRs >2.9 may be falsely elevated in patients receiving either unfractionated Heparin or Low Molecular Weight Heparin. Follow up testing in a hospital laboratory may be helpful if clinically indicated. INR results of > or = 5.0 should be verified using the standard venipuncture procedure. Reference Range 0.9-1.1 Moderate-intensity Warfarin Therapy 2.0-3.0 Higher-intensity Warfarin Therapy 3.0-4.0 PROTHROMBIN TIMEP 29.6(H) 10.5 - 13.1 sec [facility] Comment: Point of care fingerstick Prothrombin Time/INR results may vary from venous Prothrombin Time/INR methodologies. Any results exhibiting inconsistency with the patient's clinical status should be repeated using a venous Prothrombin Time/INR method. Blood BLOOD SPECIMEN / Unknown 06/29/2024 3:40 PM READING AIDE 06/29/2024 3:41 PM READING AIDE Yola Mccoyt DO LABORATORY Final Resul t Performing Organization Address [facility] Co de Phone Number [facility] [address] [place] [address], [place] [phone] [facility] [address] [place] [address] * (ABNORMAL) POCT Urinalysis Dipstick Only (06/29/2024 2:30 PM READING AIDE) Pathologist [facility] PH 6.0 5.0 - 8.0 [facility] SPECIFIC GRAVITY 1.010 1.001 - 1.035 [facility] GLUCOSE NEGATIVE NEGATIVE [facility] BILIRUBIN NEGATIVE NEGATIVE [facility] KETONES NEGATIVE NEGATIVE [facility] OCCULT BLOOD 3+(A) NEGATIVE [facility] PROTEIN NEGATIVE NEGATIVE [facility] NITRITE NEGATIVE NEGATIVE [facility] LEUKOCYTE ESTERASE NEGATIVE NEGATIVE [facility] Urine URINE SPECIMEN / Unknown 06/29/2024 2:30 PM READING AIDE 06/29/2024 2:31 PM READING AIDE us Yola Reis Detert DO URINE Final Resul t Performing Organization Address City/[facility]/ZIP Co de Phone Number [facility] [address] [place] [address], [place] [phone] [facility] [address] [place] [address] * (ABNORMAL) URINALYSIS MICROSCOPIC (06/29/2024 2:29 PM READING AIDE) RBC >100(A) 0-2, None Seen /HPF 06/29/2024 11:38 PM READING AIDE [facility] WBC 0-2 0-2, 3-5, None Seen /HPF 06/29/2024 11:38 PM READING AIDE [facility] BACTERIA None Seen None Seen, Rare, Few Bacteria/ HPF 06/29/2024 11:38 PM READING AIDE [facility] EPITHELIAL CELLS None Seen None Seen, Few Epi/HPF 06/29/2024 11:38 PM READING AIDE [facility] HYALINE CASTS 0-2 0-2, 3-5 /LPF 06/29/2024 11:38 PM READING AIDE [facility] Urine URINE SPECIMEN / Unknown Non-Blood / Unknown 06/29/2024 2:29 PM READING AIDE 06/29/2024 2:29 PM READING AIDE us Yola Mccoyt DO URINE Final Resul t [facility] [address] [place] [address], [place] * TSH WITH REFLEX (06/08/2024 10:12 AM READING AIDE) TSH W/REFLEX TO FT4 0.86 0.40 - 4.50 mIU/L [facility] Blood BLOOD SPECIMEN / Unknown 06/08/2024 10:12 AM READING AIDE 06/08/2024 10:13 AM READING AIDE us Vasyl Hay MD CHEMISTRY Final Result [facility] [address] [place] [address], [place] [phone] [facility] [address] [place] [address] * (ABNORMAL) BASIC METABOLIC PANEL (06/08/2024 10:12 AM READING AIDE) GLUCOSE 112(H) 65 - 99 mg/dL [facility] Comment: Fasting reference interval For someone without known diabetes, a glucose value between 100 and 125 mg/dL is consistent with prediabetes and should be confirmed with a follow-up test. UREA NITROGEN (BUN) 17 7 - 25 mg/dL [facility] CREATININE 0.71 0.70 - 1.22 mg/dL [facility] EGFR 88 > OR = 60 mL/min/1. 73m2 [facility] BUN/CREATININE RATIO SEE NOTE: (calc) [facility] Comment: Not Reported: BUN and Creatinine are within reference range. SODIUM 142 135 - 146 mmol/L [facility] POTASSIUM 3.8 3.5 - 5.3 mmol/L [facility] CHLORIDE 104 98 - 110 mmol/L [facility] CARBON DIOXIDE 29 20 - 32 mmol/L [facility] ELECTROLYTE BALANCE 9 7 - 17 mmol/L (calc) [facility] CALCIUM 9.1 8.6 - 10.3 mg/dL [facility] Blood BLOOD SPECIMEN / Unknown 06/08/2024 10:12 AM READING AIDE 06/08/2024 10:13 AM READING AIDE Vasyl Hay MD CHEMISTRY Final Result [facility] [address] [facility] [place] [place] [address], [place] [phone] [facility] [address] [facility] [place] [address] from Last 3 Months Insurance MEDICARE PART B HB ONLY MEDICARE PART A HB ONLY [employer] [place] [address] MEDICARE PART B HB ONLY [employer] [place] [address] MEDICARE PART A HB ONLY [employer] BLUE MR PB ONLY [employer] Advance Directives * Partial Code (Latest Code Status on File) Date Activated Date Inactivated Comments 11/15/2023 3:33 PM 11/24/2023 1:50 PM Ok for pacing , drugs. No chest compressions, no intubation Question Answer Comments Cardio Resuscitation: No Chest Compressions Ventilation: No Intubation Drug Protocol: No Restrictions * Full Code Date Activated Date Inactivated Comments 11/14/2023 4:52 PM 11/15/2023 3:33 PM Question Answer Comments Code Status Discussion: Reviewed Preferences * Full Code Date Activated Date Inactivated Comments 05/25/2020 11:56 AM 05/25/2020 4:01 PM Question Answer Comments Code Status Discussion: Not Discussed * Full Code Date Activated Date Inactivated Comments 07/15/2012 1:34 PM 07/17/2012 2:50 PM * Full Code Date Activated Date Inactivated Comments 10/08/2009 7:07 AM 10/09/2009 1:34 PM Care Teams Elementary Reading Tutor Relationship Specialty Start Date End Date Vasyl Hay MD [address] [place] [address] PCP - General 09/25/05
--- NOTE | 2024-08-14 21:23 | ED.GENADULT ---
HPI - General Adult General Time Seen by Provider: 21:23 Date Seen: 08/14/24 Chief complaint: Shortness of Breath/Dyspnea Stated complaint: Chest congestion, chills Time Seen by Provider: 08/14/24 21:09 Source: patient and RN notes reviewed Mode of arrival: ambulatory Limitations: no limitations History of Present Illness HPI narrative: This 89-year-old male is coming in with family with concern of feeling ill since August 11. He has been coughing, had chills. He is not known to have checked his temperature but thought he has had fevers. He has felt short of breath with this. He has been coughing up some sputum. He states his appetite is still good. Denies any history of any significant heart or lung issues outside of pacemakers in atrial fibrillation. He denied any history of congestive heart failure but do see in his records that he has had class 2 congestive heart failure. He does have underlying atrial fibrillation and has had pacemaker placement, did require a replacement due to malfunction of his 1st 1 causing pauses and syncope or near syncope. He is anticoagulated with Coumadin. Related Data Home Medications ?Medication ?Instructions ?Recorded ?Confirmed atorvastatin 40 mg tablet 40 mg PO DAILY 11/15/21 08/14/24 furosemide 20 mg tablet 40 mg PO DAILY 11/15/21 08/14/24 levothyroxine 100 mcg tablet 100 mcg PO DAILY 11/15/21 08/14/24 lisinopril 10 mg tablet 10 mg PO DAILY 11/15/21 08/14/24 metoprolol succinate 50 mg 50 mg PO DAILY 11/15/21 08/14/24 tablet,extended release 24 hr warfarin 5 mg tablet 2.5 - 5 mg PO .ud 11/15/21 08/14/24 finasteride 5 mg tablet 5 mg PO DAILY 11/13/23 08/14/24 potassium chloride 20 mEq oral 20 meq PO DAILY 11/13/23 08/14/24 packet (Klor-Con) Allergies Allergy/AdvReac Type Severity Reaction Status Date / Time Penicillins Allergy Rash Verified 08/14/24 21:22 Review of Systems Status of ROS: Reports: 6 or more systems reviewed and unremarkable except as noted in History and below [facility] Medical History Elevated bilirubin ?R17 - Unspecified jaundice (ICD-10) DM2 (diabetes mellitus, type 2) ?E11.9 - Type 2 diabetes mellitus without complications (ICD-10) CHF (congestive heart failure), NYHA class II ?I50.9 - Heart failure, unspecified (ICD-10) Hyperlipidemia ?E78.5 - Hyperlipidemia, unspecified (ICD-10) Lower extremity edema ?R60.0 - Localized edema (ICD-10) Hypothyroidism ?E03.9 - Hypothyroidism, unspecified (ICD-10) Atrial fibrillation ?I48.91 - Unspecified atrial fibrillation (ICD-10) AN (obstructive sleep apnea) ?G47.33 - Obstructive sleep apnea (adult) (pediatric) (ICD-10) Surgical History H/O vasectomy ?Z98.52 - Vasectomy status (ICD-10) H/O esophagogastroduodenoscopy ?Z98.890 - Other specified postprocedural states (ICD-10) H/O left inguinal hernia repair ?Z98.890 - Other specified postprocedural states (ICD-10) ?Z87.19 - Personal history of other diseases of the digestive system (ICD-10) Pacemaker ?Z95.0 - Presence of cardiac pacemaker (ICD-10) Social History Narrative: Lives independently at [address] [facility] [facility] [address]. Uses cane/walker at home. Grown children, daughter Gilma would be medical decision maker if needed. He requests DNR/DNI status. Former smoker, former ETOH user, none now. What is your current living situation?: I presently have a place to live Problems where you live: no known problems Problems where you live details: none In the past 12 months, utilities in danger of being shut off: no In past 12 months, lack of transportation kept you from medical appts, meetings, work, or getting things needed for daily living: no In the past 12 mos, have been you worried that your food would run out before you had money to buy more?: never true In the past 12 mos, the food you bought just didn't last and you didn't have money to buy more?: never true Smoking Status: Former smoker Do you use any of these nicotine containing products: None Second hand tobacco smoke exposure: No How often do you have a drink containing alcohol: never AUDIT-C Alcohol total score: 0 Non-prescribed substance use: denies use Caffeine: No How often does anyone, including family, friends and others, physically hurt you: never How often does anyone, including family, friends and others, insult or talk down to you: never How often does anyone, including family, friends and others, threaten you with harm: never How often does anyone, including family, friends and others, scream or curse at you: never service: Yes Exam Const: Vital Signs, click to edit/add: Vital Signs - 24 hr 08/14/24 21:11 08/14/24 21:48 08/14/24 22:00 Temperature 100 F H Pulse Rate 70 Pulse Rate [Pulse Oximeter] 112 H Respiratory Rate 26 H 14 Blood Pressure Blood Pressure [Ri ght Upper Arm] 177/100 H Pulse Oximetry 96 95 94 Oxygen Delivery Me thod 08/14/24 22:00 08/14/24 22:02 08/14/24 22:23 Temperature Pulse Rate 75 71 83 Pulse Rate [Pulse Oximeter] Respiratory Rate 23 20 20 Blood Pressure 126/59 L Blood Pressure [Ri ght Upper Arm] Pulse Oximetry 93 94 94 Oxygen Delivery Me thod 08/14/24 22:30 08/14/24 22:34 08/14/24 22:45 Temperature Pulse Rate 70 73 83 Pulse Rate [Pulse Oximeter] Respiratory Rate 14 12 26 H Blood Pressure 136/75 Blood Pressure [Ri ght Upper Arm] Pulse Oximetry 95 95 96 Oxygen Delivery Me thod 08/14/24 23:00 08/14/24 23:02 08/14/24 23:05 Temperature Pulse Rate 91 85 Pulse Rate [Pulse Oximeter] Respiratory Rate 17 22 Blood Pressure 170/78 H Blood Pressure [Ri ght Upper Arm] Pulse Oximetry 95 97 Oxygen Delivery Me thod Room Air 08/14/24 23:15 08/14/24 23:27 08/14/24 23:30 Temperature 99.0 F Pulse Rate 70 70 Pulse Rate [Pulse Oximeter] Respiratory Rate 12 Blood Pressure Blood Pressure [Ri ght Upper Arm] Pulse Oximetry 95 94 Oxygen Delivery Me thod 08/14/24 23:33 08/14/24 23:45 08/15/24 00:00 Temperature Pulse Rate 70 70 70 Pulse Rate [Pulse Oximeter] Respiratory Rate 14 Blood Pressure 107/58 L Blood Pressure [Ri ght Upper Arm] Pulse Oximetry 94 94 94 Oxygen Delivery Me thod 08/15/24 00:03 08/15/24 00:03 08/15/24 00:03 Temperature Pulse Rate 70 70 70 Pulse Rate [Pulse Oximeter] Respiratory Rate 16 16 10 L Blood Pressure 110/67 110/67 110/67 Blood Pressure [Ri ght Upper Arm] Pulse Oximetry 94 94 94 Oxygen Delivery Me thod Room Air This 89-year-old male is alert, interactive, no apparent distress. Sclera clear, conjugate gaze. Face flushed but no rash noted. Neck supple, no adenopathy. He has coarse rhonchi listening posterior to his lungs, does have a harsh cough. No wheezing noted, no accessory muscle use, not tachypneic at this time. CV regular, no significant murmur heard, normal S1-S2. Abdomen is soft, nontender, nondistended, no organomegaly noted. He has no lower extremity edema. Documenting provider has reviewed patient's vital signs: yes Course Course ED Course: Nursing staff collected triple viral swab, did discuss with him doing a portable chest x-ray on this gentleman. Upper respiratory infectious etiology certainly is a consideration. Need to consider secondary CHF being exacerbated from infection. This could be viral or bacterial such as pneumonia. Will get full complement of labs, watch him on pulse oximetry. I will get blood cultures on him as well given his age, presentation and fever. Reevaluation(s) Time of Reevaluation #1: 22:22 Reevaluation #1: Have reviewed with patient that chest CT was ordered as his chest x-ray really was not showing us any definite pneumonia and I certainly feel he probably has respiratory infection. His triple viral swab is negative. We really would like a good visualization of his lungs to know exactly what we might be dealing with. If his chest CT is negative, may need to proceed with further workup and consideration of alternate etiologies. Lactate did come back mildly elevated at 2.8. With his history of congestive heart failure, will proceed with a L of fluids over 2 hours, watch him closely to ensure now precipitation of CHF. Will also give him some Tylenol for his fever. Time of Reevaluation #2: 23:00 Consultations Consultation #1: Had spoken with Dr. Quick earlier, was after 11:00 p.m.. She requested that I talked to night hospitalist due to her needs to attend to some patient cares requiring immediate attention there on the floor. Patient is stable, this should be fine. Did subsequently paged the night hospitalist. I have learned in the interim that my repeat lactate will not be done, the analyzer for venous blood gas and lactate will be down all night. Did talk to Dr. Hendrix whom accepts patient, discussed IVF and he doesn't feel that patient needs more boluses at this time from presentation that I have provided. Time: 00:13 Vital Signs Vital signs: Initial Vital Signs Temperature 100 F H 08/14/24 21:11 Temperature Source Temporal Artery Scan 08/14/24 21:11 Pulse Rate 112 H 08/14/24 21:11 Respiratory Rate 26 H 08/14/24 21:11 Blood Pressure 177/100 H 08/14/24 21:11 Blood Pressure Mean 125 H 08/14/24 21:11 Pulse Oximetry 96 08/14/24 21:11 Vital Signs Temperature 100 F H 08/14/24 21:11 Pulse Rate 112 H 08/14/24 21:11 Respiratory Rate 26 H 08/14/24 21:11 Blood Pressure 177/100 H 08/14/24 21:11 Pulse Oximetry 96 08/14/24 21:11 Temperature 99.0 F 08/14/24 23:27 Pulse Rate 70 08/15/24 00:03 Respiratory Rate 16 08/15/24 00:03 Blood Pressure 110/67 08/15/24 00:03 Pulse Oximetry 94 08/15/24 00:03 Oxygen Delivery Method Room Air 08/15/24 00:03 Medications Administered Medications: Discontinued Medications Generic Name Dose Route Start Last Admin Trade Name Freq PRN Reason Stop Dose Admin Acetaminophen 1,000 mg 08/14/24 22:25 08/14/24 22:39 Acetaminophen 500 Mg Tablet PO 08/14/24 22:26 1,000 mg ONCE ONE Administration Sodium Chloride 1,000 mls @ 500 mls/hr 08/14/24 22:26 08/14/24 22:39 0.9 % Sodium Chloride 1000 Ml IV 08/15/24 00:25 500 mls/hr .Q2H ORNALDO Administration Doxycycline Hyclate 100 mg/ 100 mls @ 100 mls/hr 08/14/24 22:59 08/15/24 00:03 Sodium Chloride IVPB 08/14/24 23:00 100 mls/hr ONCE ONE Administration Ceftriaxone Sodium 1 gm/ 100 mls @ 200 mls/hr 08/14/24 23:07 08/15/24 00:00 Sodium Chloride IVPB 08/14/24 23:08 Infused ONCE ONE Infusion Medical Decision Making Lab Data Lab results reviewed: Yes I reviewed the patient's lab results Labs: Lab Results 08/14/24 08/14/24 Range/Units 21:12 22:00 WBC 8.63 (4.50-11.00) K/uL RBC 4.51 (4.30-5.90) m/uL Hgb 14.5 (13.5-17.5) gm/dL Hct 43.2 (37.0-53.0) % MCV 96 (80-100) fL MCH 32 (26-34) pg MCHC 34 (32-36) gm/dL RDW Coeff of Jena 13.1 (11.5-15.5) % Plt Count 142 (140-440) K/uL Neut % (Auto) 83.1 H (42.0-72.0) % Lymph % (Auto) 10.0 L (20-44) % Pleasants % (Auto) 4.5 (0.0-11.0) % Eos % (Auto) 1.9 (0.0-7.0) % Baso % (Auto) 0.3 (0.0-3.0) % Neut # (Auto) 7.20 H (1.7-7.0) K/uL Lymph # (Auto) 0.90 (0.90-2.90) K/uL [place] # (Auto) 0.40 (0.00-0.90) K/UL Eos # (Auto) 0.16 (0.00-0.50) K/uL Baso # (Auto) 0.03 (0.00-0.30) K/uL Abs Immat Gran (auto) 0.02 (0.00-0.30) K/uL Imm/Tot Granulo (auto) 0.2 % VBG pH 7.440 H (7.32-7.43) VBG pCO2 45 (40-50) mmHG VBG pO2 31.7 (25-47) mmHG VBG HCO3 31 H (21-28) mmol/L Sodium 143 (135-149) mmol/L Potassium 3.6 (3.6-5.1) mmol/L Chloride 104 (96-114) mmol/L Carbon Dioxide 29 (20-32) mmol/L Anion Gap 10 (7-15) mEq/L BUN 17 (7-30) mg/dL Creatinine 0.7 (0.5-1.5) mg/dL Estimated Creat Clear 51.71 Estimated GFR 88 ml/min Glucose 187 H (60-115) mg/dL Lactate 2.8 H (0.5-1.9) mmol/L Calcium 9.1 (8.4-10.6) mg/dL Total Bilirubin 3.2 H (0.1-1.5) mg/dL AST 28 (12-35) U/L ALT 21 (4-50) U/L Alkaline Phosphatase 104 (40-150) U/L Troponin I < 0.01 (0.01-0.04) ng/mL C-Reactive Protein 1.2 H (0.5-1.0) mg/dL NT-Pro-B Natriuret Pep 769 pg/mL Total Protein 7.0 (6.0-8.3) g/dL Albumin 3.9 (3.3-5.0) g/dL SARS-CoV-2 (PCR) Negative SARS-CoV-2 (Negative) Influenza Type A (PCR) Negative PCR FLU A (Negative) Influenza Type B (PCR) Negative PCR FLU B (Negative) RSV (PCR) Negative PCR RSV (Negative) Imaging Data Chest x-ray: Attestation: I have reviewed the pertinent imaging results. Radiologist's impression: Patient: TRACEY BELCHER Facility:?[facility] Patient ID:?[id number] Site Patient ID:?[id number]. Site :?[id number] Study:?XRay-Chest PORTABLE-08/14/2024 9:53:38 PM Ordering Physician:?Aashish Gonzalez Final Report: INDICATION: Cough, shortness of breath, chills TECHNIQUE: Chest radiograph 1 view COMPARISON: None FINDINGS: The sensitivity and specificity of the exam are severely limited by the patient`s body habitus. Mediastinum: The mediastinum is normal in appearance. Moderate cardiomegaly is noted. Bilateral cardiac pacer present with leads in the right atrium, right ventricle, and coronary sinus. Lung: There is a low-density nodule in the right lateral lung base measuring 8 mm. No sign of pleural effusion seen. No pneumothorax is identified. Bone and Soft tissue: Unremarkable for age. IMPRESSIONS: 1. Moderate cardiomegaly is noted. 2. There is a low-density nodule in the right lateral lung base measuring 8 mm. Comparison with any prior outside imaging is recommended. If these cannot be obtained, follow up chest radiograph in 3 months is warranted to document stability. Dictated by Mark Jacob MD @ 08/14/2024 9:56:15 PM Dictated by: Mark Jacob MD @ 08/14/2024 21:56:22 (Electronic Signature) CT scan - chest: Attestation: I have reviewed the pertinent imaging results. Radiologist's impression: Patient: TRACEY BELCHER Facility:?[facility] Patient ID:?[id number] Site Patient ID:?[id number]. Site :?[id number] Study:?CT-Chest W/O-08/14/2024 10:34:25 PM Ordering Physician:Devan Gonzalez Final Report: Indication: Cough, shortness of breath Technique: Noncontrast CT of the chest with multiplanar reformats. Comparison: None Findings: Lungs: Bibasilar patchy and consolidative pulmonary opacities. No effusion. No pneumothorax. Mediastinum: Bilateral cardiac pacers. Calcific coronary arterial and aortic atherosclerosis. Lymph nodes: No gross lymphadenopathy. Upper abdomen: No acute abnormality appreciated. Soft tissues: No acute abnormality appreciated. Bones: No acute abnormality appreciated. Degenerative changes of the spine and shoulders. Impression: Bibasilar patchy and consolidative pulmonary opacities compatible with an infectious or inflammatory process. Follow-up CT in 8-12 weeks may be considered for further evaluation. Please note that all CT scans at this facility use dose modulation, iterative reconstruction, and/or weight-based dosing when appropriate to reduce radiation dose to as low as reasonably achievable. Dictated by Kalin Boss MD @ 08/14/2024 10:55:24 PM (Electronic Signature) ECG Data Attestation: I personally reviewed and interpreted this ECG as follows: (Ventricular pacemaker, 60 beats per minute.) Prior ECG tracings: available for review Discharge Plan Discharge Clinical Impression: Community acquired pneumonia Qualifiers: Laterality: unspecified laterality Qualified Code(s): J18.9 - Pneumonia, unspecified organism Sepsis Qualifiers: Sepsis type: sepsis due to unspecified organism Sepsis acute organ dysfunction status: unspecified Qualified Code(s): A41.9 - Sepsis, unspecified organism Patient Disposition: Admitted As Observation
--- NOTE | 2024-08-14 21:32 | CRLHL7_ITS ---
For Patients: As a result of the Cures Act, medical imaging exams and procedure reports are released immediately into your electronic medical record. You may view this report before your referring provider. If you have questions, please contact your health care provider. INDICATION: Cough, shortness of breath, chills TECHNIQUE: Chest radiograph 1 view COMPARISON: None FINDINGS: The sensitivity and specificity of the exam are severely limited by the patient`s body habitus. Mediastinum: The mediastinum is normal in appearance. Moderate cardiomegaly is noted. Bilateral cardiac pacer present with leads in the right atrium, right ventricle, and coronary sinus. Lung: There is a low-density nodule in the right lateral lung base measuring 8 mm. No sign of pleural effusion seen. No pneumothorax is identified. Bone and Soft tissue: Unremarkable for age. IMPRESSIONS: 1. Moderate cardiomegaly is noted. 2. There is a low-density nodule in the right lateral lung base measuring 8 mm. Comparison with any prior outside imaging is recommended. If these cannot be obtained, follow up chest radiograph in 3 months is warranted to document stability. Dictated by Mark Jacob MD @ 08/14/2024 9:56:15 PM Dictated by: Mark Jacob MD @ 08/14/2024 21:56:22 (Electronically Signed)
[2024-08-14 21:54] LABS: PCR FLU A Negative PCR FLU A (Negative); PCR FLU B Negative PCR FLU B (Negative); PCR RSV Negative PCR RSV (Negative); SARS PCR* Negative SARS-CoV-2 (Negative)
--- NOTE | 2024-08-14 21:57 | CRLHL7_ITS ---
For Patients: As a result of the Century Cures Act, medical imaging exams and procedure reports are released immediately into your electronic medical record. You may view this report before your referring provider. If you have questions, please contact your health care provider. Indication: Cough, shortness of breath Technique: Noncontrast CT of the chest with multiplanar reformats. Comparison: None Findings: Lungs: Bibasilar patchy and consolidative pulmonary opacities. No effusion. No pneumothorax. Mediastinum: Bilateral cardiac pacers. Calcific coronary arterial and aortic atherosclerosis. Lymph nodes: No gross lymphadenopathy. Upper abdomen: No acute abnormality appreciated. Soft tissues: No acute abnormality appreciated. Bones: No acute abnormality appreciated. Degenerative changes of the spine and shoulders. Impression: Bibasilar patchy and consolidative pulmonary opacities compatible with an infectious or inflammatory process. Follow-up CT in 8-12 weeks may be considered for further evaluation. Please note that all CT scans at this facility use dose modulation, iterative reconstruction, and/or weight-based dosing when appropriate to reduce radiation dose to as low as reasonably achievable. Dictated by Kalin Boss MD @ 08/14/2024 10:55:24 PM (Electronically Signed)
--- OUTSIDE RECORDS SUMMARY | 2024-08-14 22:08 | XMS_ITS | Clinical Summary ---
Author Organization [employer] Address [address] [place] [id number] Care Team Providers Care Data Entry Analyst Name Role Phone Vasyl Hay MD Primary [...] - 08/11/2024 11:59 PM CDT Hospital Encounter [facility] [address] [place] [address] Yola Crook DO Gross hematuria 08/11/2024 Travel 08/09/2024 Telephone [facility] [address] [place] [address] Yola Crook DO Medication Management (medications prior to CT on 08/11/2024) 08/09/2024 Telephone [facility] [address] [place] [phone] Jerrell Allison MD Results (Labs) 07/28/2024 12:30 PM CDT Office Visit [facility] [address] [place] [address] Jerrell Allison MD Follow Up (Blood in urine) 07/28/2024 Travel 07/14/2024 Anticoagulation (warfarin) [facility] [address] [facility] [place] [address] 1, [facility] Anticoagulation 07/13/2024 11:30 AM VP ANALYSIS Office Visit [address] [place] [address] Yola Crook, Follow Up (sore on bottom and wart on nose/) 07/13/2024 Travel 06/29/2024 2:15 PM VP ANALYSIS Office Visit [address] [address] Yola Crook DO Hematuria; Derm Problem (sore on tailbone) 06/29/2024 Anticoagulation (warfarin) [address] [address] 1, [facility] Anticoagulation 06/29/2024 Telephone [facility] [address] [place] [address] Jerrell Allison MD Appointment Request 06/29/2024 Travel 06/29/2024 Nurse Triage [address] [address] Vasyl Hay MD Hematuria 06/16/[address] [address] Vasyl Hay MD Refill Request (Warfarin) 06/08/2024 10:30 AM VP ANALYSIS Office Visit [address] [address] Vasyl Hay MD Medication Management 06/08/2024 10:15 AM VP ANALYSIS Orders Only [address] [address] Lab, [facility] 06/08/2024 Anticoagulation (warfarin) [address] [address] 1, [facility] Anticoagulation (OV) 06/08/2024 [...] on file Legal Sex Male 5:48 AM VP ANALYSIS Gender Identity Not on file Sexual Orientation Not on file Obstetrics History Last Filed Vital Signs Vital Sign Reading Time Taken Comments Blood Pressure 126/70 07/28/2024 12:18 PM CDT Pulse 60 07/28/2024 12:18 PM CDT Temperature 36.3 C (97.4 F) 06/29/2024 2:28 PM VP ANALYSIS Respiratory Rate 17 11/24/2023 8:11 AM CDT Oxygen Saturation 98% 07/13/2024 11:43 AM VP ANALYSIS Inhaled Oxygen Concentration - - Weight 96.8 kg (213 lb 8 oz) 07/28/2024 12:18 PM CDT Height 182.9 cm (6' 0.01) 11/16/2023 4:00 AM CD T Body Mass Index 28.95 11/16/2023 4:00 AM CDT Plan of Treatment Upcoming Encounters Date Type Department Care Team (Late st Contact Info) Description 11/07/2024 10:30 AM CDT Office Visit [facility] [address] [place] [address] Vasyl Hay MD [address] [place] [address] Health Maintenance Due Date Last Done Comments [...] history exists Medical Devices Implanted Type Area Manager Managed Care Device Identifier Shelf Expiration Date Model / Serial / Lot Standard Pacemaker-09/16 Implanted: by Bartolo Orantes MD (Quantity not on file) Standard Pacemaker [employer] 2110 / [id number] / Procedures Procedure Name Priority Date/Time Associated Diagnosis Comments CT ABDOMEN PELVIS UROGRAM WWO Routine 08/11/2024 10:25 AM CDT Gross hematuria PATH URINE CYTOLOGY Routine 07/28/2024 1 2:40 PM CDT Hematuria, unspecified type HEMOGLOBIN A1C MONITORING (POCT) Routine 07/13/2024 12:26 PM VP ANALYSIS Type 2 diabetes mellitus without complication, without long-term current use of insulin (HC) PROTIME-INR Routine 07/13/2024 12:24 PM VP ANALYSIS Paroxysmal atrial fibrillation (HC) Anticoagulation monitoring, INR range 2-3 URINE ALBUMIN TO CREATININE RATIO, RANDOM Routine 07/13/2024 12:24 PM VP ANALYSIS Type 2 diabetes mellitus without complication, without long-term current use of insulin (HC) INR,POCT Routine 06/29/2024 3:40 PM VP ANALYSIS Gross hematuria Anticoagulation monitoring, INR range 2-3 URINALYSIS MACROSCOPIC - [facility] ONLY POC DIP ([facility]) Routine 06/29/2024 2:30 PM VP ANALYSIS Gross hematuria URINALYSIS MICROSCOPIC Routine 06/29/2024 2:29 PM VP ANALYSIS Gross hematuria HEMOGLOBIN A1C MONITORING (POCT) Routine 06/08/2024 10:12 AM VP ANALYSIS Type 2 diabetes mellitus without complication, without long-term current use of insulin (HC) BASIC METABOLIC PANEL Routine 06/08/2024 10:12 AM VP ANALYSIS Type 2 diabetes mellitus without complication, without long-term current use of insulin (HC) TSH WITH REFLEX Routine 06/08/2024 10:12 AM VP ANALYSIS Acquired hypothyroidism URINE ALBUMIN TO CREATININE RATIO, RANDOM Routine 06/08/2024 10:11 AM VP ANALYSIS Type 2 diabetes mellitus without complication, without long-term current use of insulin (HC) PROTIME-INR Routine 06/08/2024 10:11 AM VP ANALYSIS Paroxysmal atrial fibrillation (HC) Anticoagulation monitoring, INR [...] CDT) Case Report Medical Cytology Report Case: [id number] Authorizing Provider: Jerrell Allison MD Collected: 07/28/2024 1240 Ordering Location: [facility] Received: 07/28/2024 1341 Clinic Pathologist: Russ Reinoos Jr., MD Specimen: Urine Void 07/29/2024 2:40 PM CDT [facility] Final Diagnosis URINE FOR CYTOLOGY: Atypical urothelial cells 07/29/2024 2:40 PM CDT [facility]- ENTR[facility] LABORATORY at 1440 CDT Comment According to [...] in an addendum. 07/29/2024 2:[address] [facility] Clinical Information Hematuria 07/29/2024 2:[address] [facility] Gross Description A) SOURCE: Urine, Voided The specimen consists of 90 cc of red cloudy fluid from which the following is prepared: -1 Papanicolaou stained ThinPrep slide 07/29/2024 2:[address] [facility] Microscopic Description All slides were reviewed microscopically. Specimen adequacy: Adequate for interpretation. The microscopic appearance substantiates the diagnosis. 07/29/2024 2:[address] [facility] Additional Information Cytology is screened at [facility] - [address] [address] and [facility] - [address] [place] [address] and [facility] - [address] [place] [address] Interpreted at [facility] - [address], [place] [address] 07/29/2024 2:[address] [facility] Urine URINE SPECIMEN / Unknown Non-Blood / Unknown 07/28/2024 12:40 PM CDT 07/28/2024 1:41 PM CDT us Jerrell Allison MD PATHOLOGY/CYTOLOGY Final Resul t [facility] [address] [place] [address], * (ABNORMAL) HEMOGLOBIN A1C MONITORING (POCT) (07/13/2024 12:26 PM VP ANALYSIS) Only the most recent of2 resultswithin the time period is included. POC HEMOGLOBIN A1C 6.5(H) <6.0 % OF TOTAL HGB [facility] Comment: Any point of care results exhibiting inconsistency with the patient's clinical status should be repeated using a different testing method. Blood BLOOD SPECIMEN / Unknown 07/13/2024 12:26 PM VP ANALYSIS 07/13/2024 12:29 PM VP ANALYSIS Narrative [facility] - 07/13/2024 12:38 PM VP ANALYSIS FASTING:YES FASTING: YES Vasyl Hay MD CHEMISTRY Final Result [facility] [address] [place] [address], [facility] [address] [place] [address] * (ABNORMAL) URINE ALBUMIN TO CREATININE RATIO, RANDOM (07/13/2024 12:24 PM VP ANALYSIS) Only the most recent of2 resultswithin the time period is included. ALB RAND URINE 103.0 mg/L 07/14/2024 12:40 AM VP ANALYSIS [facility] CREATININE,URIN E 1.11 g/L 07/14/2024 12:40 AM VP ANALYSIS [facility] ALBUMIN TO CREATININE RATIO,RAND UR 92.8(H) <30.0 mg/g creat 07/14/2024 12:40 AM VP ANALYSIS [facility] Urine URINE SPECIMEN / Unknown Non-Blood / Unknown 07/13/2024 12:24 PM VP ANALYSIS 07/13/2024 12:24 PM VP [facility] 07/14/2024 12:40 AM VP ANALYSIS If Albumin to Creatinine Ratio is elevated, consider the following: Elevations seen with incipient nephropathy associated with diabetes mellitus or hypertension. Stress, exercise,hematuria, and urinary tract infection may also produce elevated results. If clinically indicated, confirm with 24 Hour Albumin to Creatinine Ratio. us Vasyl Hay MD URINE Final Result Performing Organization Address [facility] de Phone Number [facility] [address] [address], [place] * (ABNORMAL) PROTIME-INR [00554.0] - Standing Order (07/13/2024 12:24 PM VP ANALYSIS) Only the most recent of2 resultswithin the time period is included. INR 3.0(H) <1.3 07/13/2024 10:35 PM VP ANALYSIS [facility] PROTIME 34.5(H) 10.6 - 12.4 sec 07/13/2024 10:35 PM VP ANALYSIS [facility] Blood BLOOD SPECIMEN / Unknown [facility] / Unknown 07/13/2024 12:24 PM VP ANALYSIS 07/13/2024 12:24 PM VP ANALYSIS Narrative [facility] - 07/13/2024 10:35 PM VP ANALYSIS Therapeutic Range 2.0-3.0 for most anticoagulated patients [...] MD HEMATOLOGY Final Result Performing Organization Address [facility] de Phone Number [facility] [address] [address], [place] * (ABNORMAL) INR,POCT (06/29/2024 3:40 PM VP ANALYSIS) INR 2.5(H) ratio [facility] Comment: INRs >2.9 may be [...] PROTHROMBIN TIMEP 29.6(H) 10.5 - 13.1 sec [facility] Comment: Point of care fingerstick Prothrombin Time/INR results may vary from venous Prothrombin Time/INR methodologies. Any results exhibiting inconsistency with the patient's clinical status should be repeated using a venous Prothrombin Time/INR method. Blood BLOOD SPECIMEN / Unknown 06/29/2024 3:40 PM VP ANALYSIS 06/29/2024 3:41 PM VP ANALYSIS Yola Mccoyt DO LABORATORY Final Resul t Performing Organization Address [facility] Co de Phone Number [facility] [address] [place] [address], [place] [phone] [facility] [address] [place] [address] * (ABNORMAL) POCT Urinalysis Dipstick Only (06/29/2024 2:30 PM VP ANALYSIS) Pathologist [facility] PH 6.0 5.0 - 8.0 [facility] SPECIFIC GRAVITY 1.010 1.001 - 1.035 [facility] GLUCOSE NEGATIVE NEGATIVE [facility] BILIRUBIN NEGATIVE NEGATIVE [facility] KETONES NEGATIVE NEGATIVE [facility] OCCULT BLOOD 3+(A) NEGATIVE [facility] PROTEIN NEGATIVE NEGATIVE [facility] NITRITE NEGATIVE NEGATIVE [facility] LEUKOCYTE ESTERASE NEGATIVE NEGATIVE [facility] Urine URINE SPECIMEN / Unknown 06/29/2024 2:30 PM VP ANALYSIS 06/29/2024 2:31 PM VP ANALYSIS us Yola Reis Detert DO URINE Final Resul t Performing Organization Address City/[facility]/ZIP Co de Phone Number [facility] [address] [place] [address], [place] [phone] [facility] [address] [place] [address] * (ABNORMAL) URINALYSIS MICROSCOPIC (06/29/2024 2:29 PM VP ANALYSIS) RBC >100(A) 0-2, None Seen /HPF 06/29/2024 11:38 PM VP ANALYSIS [facility] WBC 0-2 0-2, 3-5, None Seen /HPF 06/29/2024 11:38 PM VP ANALYSIS [facility] BACTERIA None Seen None Seen, Rare, Few Bacteria/ HPF 06/29/2024 11:38 PM VP ANALYSIS [facility] EPITHELIAL CELLS None Seen None Seen, Few Epi/HPF 06/29/2024 11:38 PM VP ANALYSIS [facility] HYALINE CASTS 0-2 0-2, 3-5 /LPF 06/29/2024 11:38 PM VP ANALYSIS [facility] Urine URINE SPECIMEN / Unknown Non-Blood / Unknown 06/29/2024 2:29 PM VP ANALYSIS 06/29/2024 2:29 PM VP ANALYSIS us Yola Mccoyt DO URINE Final Resul t [facility] [address] [place] [address], [place] * TSH WITH REFLEX (06/08/2024 10:12 AM VP ANALYSIS) TSH W/REFLEX TO FT4 0.86 0.40 - 4.50 mIU/L [facility] Blood BLOOD SPECIMEN / Unknown 06/08/2024 10:12 AM VP ANALYSIS 06/08/2024 10:13 AM VP ANALYSIS us Vasyl Hya MD CHEMISTRY Final Result [email or web address] [address] [place] [address], [place] [phone] [facility] [address] [place] [address] * (ABNORMAL) BASIC METABOLIC PANEL (06/08/2024 10:12 AM VP ANALYSIS) GLUCOSE 112(H) 65 - 99 mg/dL [facility] Comment: Fasting reference interval For someone without known diabetes, a glucose value between 100 and 125 mg/dL is consistent with prediabetes and should be confirmed with a follow-up test. UREA NITROGEN (BUN) 17 7 - 25 mg/dL [facility] CREATININE 0.71 0.70 - 1.22 mg/dL [facility] EGFR 88 > OR = 60 mL/min/1. 73m2 [facility] BUN/CREATININE RATIO SEE NOTE: (calc) [facility] Comment: Not Reported: BUN and Creatinine are within reference range. SODIUM 142 135 - 146 mmol/L [facility] POTASSIUM 3.8 3.5 - 5.3 mmol/L [facility] CHLORIDE 104 98 - 110 mmol/L [facility] CARBON DIOXIDE 29 20 - 32 mmol/L [facility] ELECTROLYTE BALANCE 9 7 - 17 mmol/L (calc) [facility] CALCIUM 9.1 8.6 - 10.3 mg/dL [facility] Blood BLOOD SPECIMEN / Unknown 06/08/2024 10:12 AM VP ANALYSIS 06/08/2024 10:13 AM VP ANALYSIS Vasyl Hay MD CHEMISTRY Final Result [facility] [address] [facility] [address], [place] [phone] [facility] [address] [facility] [place] [address] from Last 3 Months Insurance MEDICARE PART B HB ONLY MEDICARE PART A HB ONLY [employer] [place] [place] [employer] HB ONLY Member Subscriber Plan / Payer (Ef fective 2016-) Name:Vasyl Santiago Relation to Subscriber:Self Name:Vasyl Santiago Payer ID:[id number] ([facility]) Type:Not on file Address: [facility] [address] [place] [address] MEDICARE PART B HB ONLY [employer] [place] [place] BL[place] HB ONLY MEDICARE PART A HB ONLY [employer] [place] BL[employer] MR PB ONLY [employer] [...] 7:07 AM 10/09/2009 1:34 PM Care Teams Data Entry Analyst Relationship Specialty Start Date End Date Vasyl Hay MD [address] [place] [address] PCP - General 09/25/05
[2024-08-14 22:19] LABS: HCO3 VBG 31 mmol/L (21-28); Lactate* 2.8 mmol/L (0.5-1.9); PCO2 VBG 45 mmHG (40-50); PO2 VBG 31.7 mmHG (25-47)
[2024-08-14 22:24] LABS: Basophils Absolute Auto 0.03 K/uL (0.00-0.30); Basophils Percent Auto 0.3 % (0.0-3.0); Eosinophils Absolute Auto 0.16 K/uL (0.00-0.50); Eosinophils Percent Auto 1.9 % (0.0-7.0); Hematocrit 43.2 % (37.0-53.0); Hemoglobin* 14.5 gm/dL (13.5-17.5); Immature Granulocytes Abs Auto 0.02 K/uL (0.00-0.30); Immature Granulocytes Pct Auto 0.2 %; Mean Corpuscular HGB Conc 34 gm/dL (32-36); Mean Corpuscular Hemoglobin 32 pg (26-34); Mean Corpuscular Volume 96 fL (80-100); Monocytes Percent Auto 4.5 % (0.0-11.0); Neutrophils Percent Auto 83.1 % (42.0-72.0); Platelet Count* 142 K/uL (140-440); RDW Coefficient of Variation % 13.1 % (11.5-15.5); Red Blood Count 4.51 m/uL (4.30-5.90); White Blood Count* 8.63 K/uL (4.50-11.00)
[2024-08-14 22:35] LABS: Albumin* 3.9 g/dL (3.3-5.0); Chloride* 104 mmol/L (96-114); Potassium* 3.6 mmol/L (3.6-5.1); Sodium* 143 mmol/L (135-149)
[2024-08-14 22:36] LABS: Slide Review Reflex No
[2024-08-14 22:37] LABS: Blood Urea Nitrogen* 17 mg/dL (7-30); Creatinine* 0.7 mg/dL (0.5-1.5); Est. Creatinine Clearance* 51.71; Estimated Glomerular Filt Rate 88 ml/min
[2024-08-14 22:38] LABS: Alanine Aminotransferase* 21 U/L (4-50); Alkaline Phosphatase* 104 U/L (40-150); Anion Gap 10 mEq/L (7-15); Aspartate Amino Transferase* 28 U/L (12-35); Calcium* 9.1 mg/dL (8.4-10.6); Carbon Dioxide* 29 mmol/L (20-32); Glucose* 187 mg/dL (60-115)
[2024-08-14] MEDS: ACETAMINOPHEN 500 MG TABLET 1000 MG PO (22:39)
[2024-08-14] MEDS: 0.9 % SODIUM CHLORIDE 1000 ml 1,000 ML 500 ML IV (22:39)
[2024-08-14 22:41] LABS: C Reactive Protein* 1.2 mg/dL (0.5-1.0)
[2024-08-14 22:51] LABS: NT Pro B Type NatriureticPept* 769 pg/mL; Troponin I* < 0.01 ng/mL (0.01-0.04)
[2024-08-14] MEDS: cefTRIAXone 1 GM in 0.9 % SODIUM CHLORIDE Mini-bag 100 ML IVPB (23:25)
[2024-08-15] VITALS (16 sets, daily range): BP systolic 110–135; BP diastolic 65–81; PULSE 70–87; RESP 10–18; TEMP 36.6–37.6; O2SAT 94–98; BMI 28.6
[2024-08-15] MEDS: DOXYCYCLINE HYCLATE 100 MG in 0.9 % SODIUM CHLORIDE Mini-bag 100 ML IVPB ×3 (00:03→22:03)
--- NOTE | 2024-08-15 00:37 | W.PM.THH&P_ITS ---
Telehealth- H&P: HPI History of Present Illness Date Seen: 08/15/24 Chief complaint: Chest congestion, chills Narrative: Vasyl Santiago is seen as an Interactive Telehealth visit. Vasyl Santiago is a 89 year old male with a history of CHF with mildly reduced ejection fraction, atrial fibrillation on Coumadin, diet-controlled diabetes, hypothyroidism, AN, hyperlipidemia who has been ill since August 11 with coughing, subjective fevers and chills. He has been coughing up sputum, no blood. He has also had shortness of breath associated with this. Patient has a history of pacemaker placement for atrial fibrillation, and has AV paced rhythm on EKG. He swabbed negative for COVID, influenza, RSV. CT scan obtained in the emergency department revealed bilateral patchy opacities, possible community- acquired pneumonia. Tmax was 100.0, initial pulse was 112, with room air saturation in the 90s on room air. And this has remained stable. Patient was given 1 L of fluid only for lactate of 2.8. He was given empiric Rocephin and doxycycline. Due to the analyzer being down, we cannot recheck the lactic acid at this time. Patient will be admitted observation to ensure continued improvement. Review of Systems Status of ROS: Reports: 10 or more systems reviewed and unremarkable except as noted in History and below [facility] Medical History Elevated bilirubin ?R17 - Unspecified jaundice (ICD-10) DM2 (diabetes mellitus, type 2) ?E11.9 - Type 2 diabetes mellitus without complications (ICD-10) CHF (congestive heart failure), NYHA class II ?I50.9 - Heart failure, unspecified (ICD-10) Hyperlipidemia ?E78.5 - Hyperlipidemia, unspecified (ICD-10) Lower extremity edema ?R60.0 - Localized edema (ICD-10) Hypothyroidism ?E03.9 - Hypothyroidism, unspecified (ICD-10) Atrial fibrillation ?I48.91 - Unspecified atrial fibrillation (ICD-10) AN (obstructive sleep apnea) ?G47.33 - Obstructive sleep apnea (adult) (pediatric) (ICD-10) Surgical History H/O vasectomy ?Z98.52 - Vasectomy status (ICD-10) H/O esophagogastroduodenoscopy ?Z98.890 - Other specified postprocedural states (ICD-10) H/O left inguinal hernia repair ?Z98.890 - Other specified postprocedural states (ICD-10) ?Z87.19 - Personal history of other diseases of the digestive system (ICD-10) Pacemaker ?Z95.0 - Presence of cardiac pacemaker (ICD-10) Social History Narrative: Lives independently at [address]. Uses cane/walker at home. Grown children, daughter Gilma would be medical decision maker if needed. He requests DNR/DNI status. Former smoker, former ETOH user, none now. What is your current living situation?: I presently have a place to live Problems where you live: no known problems Problems where you live details: none In the past 12 months, utilities in danger of being shut off: no In past 12 months, lack of transportation kept you from medical appts, meetings, work, or getting things needed for daily living: no In the past 12 mos, have been you worried that your food would run out before you had money to buy more?: never true In the past 12 mos, the food you bought just didn't last and you didn't have money to buy more?: never true Smoking Status: Former smoker Do you use any of these nicotine containing products: None Second hand tobacco smoke exposure: No How often do you have a drink containing alcohol: never AUDIT-C Alcohol total score: 0 Non-prescribed substance use: denies use Caffeine: No How often does anyone, including family, friends and others, physically hurt you : never How often does anyone, including family, friends and others, insult or talk down to you: never How often does anyone, including family, friends and others, threaten you with harm: never How often does anyone, including family, friends and others, scream or curse at you: never service: Yes Meds Home Medications and Allergies Home Medications ?Medication ?Instructions ?Recorded ?Confirmed ?Type atorvastatin 40 mg tablet 40 mg PO DAILY 11/15/21 08/14/24 History furosemide 20 mg tablet 40 mg PO DAILY 11/15/21 08/14/24 History levothyroxine 100 mcg tablet 100 mcg PO DAILY 11/15/21 08/14/24 History lisinopril 10 mg tablet 10 mg PO DAILY 11/15/21 08/14/24 History metoprolol succinate 50 mg 50 mg PO DAILY 11/15/21 08/14/24 History tablet,extended release 24 hr warfarin 5 mg tablet 2.5 - 5 mg PO .ud 11/15/21 08/14/24 History finasteride 5 mg tablet 5 mg PO DAILY 11/13/23 08/14/24 History potassium chloride 20 mEq oral 20 meq PO DAILY 11/13/23 08/14/24 History packet (Klor-Con) Allergies Allergy/AdvReac Type Severity Reaction Status Date / Time Penicillins Allergy Rash Verified 08/14/24 21:22 Exam Narrative Exam Narrative: Physical Exam GENERAL: ?vital signs reviewed, well developed and nourished, in no distress HEENT: pupils are equal round and reactive to light, extraocular movements are grossly within normal limits and oral mucosa is moist. NECK: Supple without lymphadenopathy or thyromegaly according to nursing staff examination observation HEART: Regular without any rubs, murmurs, or gallops. LUNGS: Coarse crackles throughout all lung miguel ABDOMEN: Observation from nurse assisted exam, abdomen appears soft, nontender, and nondistended with Positive bowel sounds noted. EXTREMITIES: Strength and sensation is observed to be grossly within normal gibbons its in the upper and lower extremities.? trace edema b/l. SKIN:? Observed warm and dry with color normal Const Vital Signs, click to edit/add: Vital Signs - 24 hr 08/14/24 21:11 08/14/24 21:48 08/14/24 22:00 Temperature 100 F H Pulse Rate 70 Pulse Rate [Pulse Oximeter] 112 H Respiratory Rate 26 H 14 Blood Pressure Blood Pressure [Right Upper Arm] 177/100 H Pulse Oximetry 96 95 94 Oxygen Delivery Method 08/14/24 22:00 08/14/24 22:02 08/14/24 22:23 Temperature Pulse Rate 75 71 83 Pulse Rate [Pulse Oximeter] Respiratory Rate 23 20 20 Blood Pressure 126/59 L Blood Pressure [Right Upper Arm] Pulse Oximetry 93 94 94 Oxygen Delivery Method 08/14/24 22:30 08/14/24 22:34 08/14/24 22:45 Temperature Pulse Rate 70 73 83 Pulse Rate [Pulse Oximeter] Respiratory Rate 14 12 26 H Blood Pressure 136/75 Blood Pressure [Right Upper Arm] Pulse Oximetry 95 95 96 Oxygen Delivery Method 08/14/24 23:00 08/14/24 23:02 08/14/24 23:05 Temperature Pulse Rate 91 85 Pulse Rate [Pulse Oximeter] Respiratory Rate 17 22 Blood Pressure 170/78 H Blood Pressure [Right Upper Arm] Pulse Oximetry 95 97 Oxygen Delivery Method Room Air 08/14/24 23:15 08/14/24 23:27 08/14/24 23:30 Temperature 99.0 F Pulse Rate 70 70 Pulse Rate [Pulse Oximeter] Respiratory Rate 12 Blood Pressure Blood Pressure [Right Upper Arm] Pulse Oximetry 95 94 Oxygen Delivery Method 08/14/24 23:33 08/14/24 23:45 08/15/24 00:00 Temperature Pulse Rate 70 70 70 Pulse Rate [Pulse Oximeter] Respiratory Rate 14 Blood Pressure 107/58 L Blood Pressure [Right Upper Arm] Pulse Oximetry 94 94 94 Oxygen Delivery Method 08/15/24 00:03 08/15/24 00:03 08/15/24 00:03 Temperature Pulse Rate 70 70 70 Pulse Rate [Pulse Oximeter] Respiratory Rate 16 16 10 L Blood Pressure 110/67 110/67 110/67 Blood Pressure [Right Upper Arm] Pulse Oximetry 94 94 94 Oxygen Delivery Method Room Air Hospitalist - H&P: Result Labs Labs: Short CBC 08/14/24 Range/Units 22:00 WBC 8.63 (4.50-11.00) K/uL Hgb 14.5 (13.5-17.5) gm/dL Hct 43.2 (37.0-53.0) % Plt Count 142 (140-440) K/uL BMP 08/14/24 22:00 Sodium 143 Potassium 3.6 Chloride 104 Carbon Dioxide 29 BUN 17 Creatinine 0.7 Glucose 187 H Calcium 9.1 Cardiac Enzymes 08/14/24 Range/Units 22:00 Troponin I < 0.01 (0.01-0.04) ng/mL Liver Function 08/14/24 Range/Units 22:00 Total Bilirubin 3.2 H (0.1-1.5) mg/dL AST 28 (12-35) U/L ALT 21 (4-50) U/L Alkaline Phosphatase 104 (40-150) U/L Albumin 3.9 (3.3-5.0) g/dL Assessment and Plan Assessment and plan (1) Sepsis: Status: Acute Assessment and Plan: Bilateral opacities seen on CTA, possible community-acquired pneumonia. Patient is not hypoxic, no respiratory failure. He tested negative for COVID, influenza, RSV. 1 L IV fluid given, no further scheduled fluids as he does have a history of heart failure with reduced ejection fraction. Lactic acid on presentation 2.8. Analyzer is down, recheck not possible at this time. Vital signs have improved however, no longer meets sepsis criteria. (2) Community acquired pneumonia: Status: Acute Assessment and Plan: Will continue empiric doxycycline and Rocephin. Spotcheck oxygen saturation, not requiring supplemental oxygen at this time. Antitussives, antipyretics as needed (3) Elevated bilirubin: Problem comment: - 3.2 on 11/12, has been elevated in the past on chart review - last Ab/Pelvis imaging in May 2022 (per chart review) revealed no hepatobiliary or pancreatic abnormalities - follow and consider outpatient workup Status: Acute Assessment and Plan: Chronic, no acute issues (4) DM2 (diabetes mellitus, type 2): Problem comment: - diet controlled, last A1C 6.19 May 2023 - accuchecks Status: Acute Assessment and Plan: Chronic, no acute issues. Patient does not take any medications for this. Diet controlled. (5) CHF (congestive heart failure), NYHA class II: Problem comment: - with decreased LV function - last TTE in 2021: Final Impressions: 1. Normal LV size, moderately increased wall thickness, mildly reduced global systolic function with an estimated EF of 40 - 45%. 2. Abnormal septal motion consistent with RV pacemaker. 3. Moderately enlarged left atrium. 4. The aortic valve is trileaflet and sclerotic, no stenosis and no regurgitation. 5. The mitral valve is sclerotic, mild mitral regurgitation. 6. 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 7. Compared to the 2020 echo, the LV function has mildly declined. Status: Acute Assessment and Plan: No acute issues. Received 1 L of fluid on admission, will limit further fluid administration at this time (6) Hypothyroidism: Problem comment: - TSH has been 0.29-1.34 over the past 1-2 years - will decrease dose of Synthroid from 100 --> 50mcg (11/12) given age Status: Acute Assessment and Plan: Continue home meds (7) Acute subdural hematoma: Problem comment: - per formal radiology read of head CT on 11/12: 1. Thin 6 mm extra-axial collection along the right cerebral convexity, new from 11/11/2023, with discrete hyperdense and hypodense components, suggestive of subdural hematohygroma. 2. No skull fracture, midline shift, or herniation - ER physician reviewed with Neurosurgery, who did not recommend any followup imaging - continue neuro checks, follow clinically - discontinue Coumadin after risk and benefit discussion with patient and fam bernie Status: Acute Plan Telehealth Visit: Todays History and Physical is via interactive telehealth by Cipriano Hendrix. The Patient is located in [place], [place]. Physician is located at [facility]. Nursing staff assisted in the patient's exam. The visit being done today meets criteria for a telehealth visit and the patient or patient's parent/guardian is aware the visit is a telehealth visit. Camera Start time 0115 Camera End time 0125 Telehealth: Statement Statement Telehealth Visit: Today's History and Physical is provided via interactive telehealth by Cipriano Hendrix MD.? Patient is located at [facility].? Provider is located at [facility].? Nursing staff assisted with the patient's exam. The visit being done today meets criteria for a telehealth visit and the patient or patient?s parent/guardian is aware the visit is a telehealth visit.
[2024-08-15] MEDS: ACETAMINOPHEN 325 MG TABLET PO (02:20)
[2024-08-15 08:38] LABS: Bilirubin Direct* 0.3 mg/dL (0.0-0.5); Lipase* 51 U/L (23-300)
[2024-08-15 08:41] LABS: Bilirubin Total* 2.9 mg/dL (0.1-1.5)
[2024-08-15 09:03] LABS: INR 2.73 (0.91-1.10); Prothrombin Time 30.1 Seconds
[2024-08-15 09:08] LABS: Lactate* 1.6 mmol/L (0.5-1.9)
[2024-08-15] MEDS: POTASSIUM CHLORIDE 10 MEQ CAPSULE ER 20 MEQ PO (09:08)
[2024-08-15] MEDS: lisinopriL 10 MG TABLET PO (09:08)
[2024-08-15] MEDS: METOPROLOL SUCCINATE (XL) 50 MG TAB PO (09:08)
[2024-08-15] MEDS: ATORVASTATIN CALCIUM 40 MG TABLET PO (09:08)
[2024-08-15] MEDS: FINASTERIDE 5 MG TABLET PO (09:08)
[2024-08-15] MEDS: SODIUM CHLORIDE 0.9 % (FLUSH) 10 ML SYRINGE 5 ML IVF ×2 (09:09→22:05)
--- NOTE | 2024-08-15 10:09 | SLP.EVAL ---
KRISSY Meléndez Start: 08/15/24 09:29 Martha: Status: Active Protocol: Document 08/15/24 09:29 ESTELITA (Rec: 08/15/24 09:58 ESTELITA [id number]) E-signed By Cody Alcantara, KRISSY ECONOMIC RESEARCH ASSISTANT System Review History & Reason For Referral Type of Speech Evaluation Dysphagia Evaluation Rehabilitation Order Evaluation and Treat Date of Order 08/15/24 Reason for Referral dysphagia Onset Date Of Patient's Problem 08/15/24 Medical Diagnosis Sepsis, CAP Treatment Diagnosis Dysphagia Pertinent Medical History Per provider, Vasyl Santiago is seen as an Interactive Telehealth visit. Vasyl Santiago is a 89 year old male with a history of CHF with mildly reduced ejection fraction, atrial fibrillation on Coumadin, diet -controlled diabetes, hypothyroidism, AN, hyperlipidemia who has been ill since August 11 with coughing, subjective fevers and chills. He has been coughing up sputum, no blood. He has also had shortness of breath associated with this. Patient has a history of pacemaker placement for atrial fibrillation, and has AV paced rhythm on EKG. He swabbed negative for COVID, influenza, RSV. CT scan obtained in the emergency department revealed bilateral patchy opacities, possible community-acquired pneumonia. Tmax was 100.0, initial pulse was 112, with room air saturation in the 90s on room air. And this has remained stable. Patient was given 1 L of fluid only for lactate of 2.8. He was given empiric Rocephin and doxycycline. Due to the analyzer being down, we cannot recheck the lactic acid at this time. Patient will be admitted observation to ensure continued improvement. Medications Reviewed Pain Pain Intensity 0 Hearing Information Hearing Status WFL Vision Information Vision Status Glasses ECONOMIC RESEARCH ASSISTANT Initial Assessment/POC Subjective Information Subjective/Pain Comment Patient reports chronic dysphagia, especially with medications. He reports that sometimes food gets stuck and he tries to drink water but often will end up bringing up food. Pills get stuck so he has been taking with applesauce but that does not always help and then his throat get sore where the pill was stuck. Assessment & Impression Assessment/Impression ASSESSMENT Oral [facility] exam: WFL; minimal lingual incoordination. Trials of thin, puree, solids and pills were administered. Thin: Patient was given x3 ice chips, x3 spoon sips and 4 ounces of water via cup, straw and consecutive swallows. Oral phase-Adequate acceptance and oral containment with good bolus control and timely A/P movement. Pharyngeal phase -Timely swallow with poor hyolaryngeal elevation. No overt s/sx of penetration or aspiration. Puree: Patient was given 4 ounces of applesauce. Oral phase-Adequate acceptance and oral containment with good bolus control and timely A/P movement. No oral residue. Pharyngeal phase-Timely swallow with poor hyolaryngeal elevation. No complaints of food sticking but did have intermittent double swallow. No overt s/sx of penetration or aspiration. Solid: Patient was given 1/2 maxine cracker. Oral phase- Adequate acceptance and oral containment with good bolus control and timely A/P movement. No oral residue. Pharyngeal phase-Timely swallow with poor hyolaryngeal elevation. No complaints of food sticking but intermittent double swallow. No overt s/sx of penetration or aspiration. Medication given in applesauce . Complaints of one pill sticking and additional liquids swallows did not remove sensation which was on the right throat area. IMPRESSIONS Vasyl is a 89-year-old male admitted with sepsis and CAP. He reports chronic dysphagia, about two years, with pills and sometimes food sticking. He thinks he might have had a test that looked at his esophagus (?EGD) but unable to find records. A clinical swallow evaluation was completed per provider orders. Patient presents with a mild pharyngeal dysphagia with suspected esophageal component . Oral phase of the swallow intact. Pharyngeal phase of the swallow marked by significantly reduced hyolaryngeal elevation but no overt s/sx of penetration or aspiration. Patient did not endorse globus sensation, however, intermittent double swallows noted indicating possible pharyngeal stasis. Recommend continuing with a Regular diet with thin liquids . Safe swallow strategies include upright for all po and remain upright 30-60 minutes after meals, small bites/sips, slow rate of intake, take a drink every few bites, meds crushed in applesauce. Patient would benefit from a modified barium swallow study to further assess the pharyngeal phase of the swallow. This could be completed Thursday AM if patient is still hospitalized or scheduled as an outpatient. ECONOMIC RESEARCH ASSISTANT will follow 3x/week for dysphagia management. Functional Limitations & Outcome/Goals Primary Functional Limitations High aspiration risk. Goals/Functional Outcomes STG 1: Patient will verbalize understanding of ECONOMIC RESEARCH ASSISTANT role and recommendations. GOAL MET 08/15. STG 2: Patient will tolerate a Regular diet with thin liquids with no overt s/sx of aspiration or dysphagia with use of swallow strategies independently. Therapist Signature & License # I Certify That Therapy Services Provided, Therapy Plan Established, Therapy Plan Reviewed Certification Date Date of First Visit for Therapy 08/15/24 Clinic Certification # #[id number] Recertification Due Date 08/22/24 Physician Signature Signature of Physician Indicates Treatment Plan,Certification Plan,Medically Needed Services Physician Signature & Date Required Please Sign/Date Here Dysphagia Education Topics Education Topics Teaching Recipient Patient Teaching Methods Verbal Therapist Signature/License Number Cody Alcantara MS [facility]-ECONOMIC RESEARCH ASSISTANT # [id number] Speech/Language Pathology Billing Units Billing Units Eval Swallow Function 1
--- NOTE | 2024-08-15 10:44 | NUTR.NU ---
RDN with diet education related to diabetic diet order. Patient admitted for sepsis and pneumonia. Past medical history significant for diet-controlled type 2 diabetes. Current weight 211lbs; height 6ft; BMI 28.6 kg/m2. Weight history is stable. Current diet order is Diabetic. No meal intakes yet since admit. RDN visited with patient whom reports a good appetite, no changes recently. He tries to follow a healthy diet at home. Had no questions related to diet order at this time. Declined diet education related to diabetes. No nutrition interventions at this time. RDN will continue to monitor and follow-up prn.
--- NOTE | 2024-08-15 11:46 | PM.IMPN1 ---
Assessment and Plan Assessment and plan (1) Sepsis: Problem comment: -08/14/2024: Rigors, cough, dyspnea, fever, tachycardia, elevated lactate on presentation. -08/15/2024: Improving with IV fluids, IV antibiotics Status: Acute (2) Community acquired pneumonia: Problem comment: -on ceftriaxone and doxycycline Status: Acute (3) Elevated bilirubin: Problem comment: - total bilirubin 2.9 with direct bilirubin 0.3 and indirect bilirubin elevated at 2.6 consistent with dehydrated state - 3.2 on 11/12, has been elevated in the past on chart review - last Ab/Pelvis imaging in May 2022 (per chart review) revealed no hepatobiliary or pancreatic abnormalities - follow and consider outpatient workup Status: Acute (4) DM2 (diabetes mellitus, type 2): Problem comment: - diet controlled, last A1C 6.19 May 2023 - accuchecks Status: Acute (5) CHF (congestive heart failure), NYHA class II: Problem comment: - with decreased LV function - last TTE in 2021: Final Impressions: 1. Normal LV size, moderately increased wall thickness, mildly reduced global systolic function with an estimated EF of 40 - 45%. 2. Abnormal septal motion consistent with RV pacemaker. 3. Moderately enlarged left atrium. 4. The aortic valve is trileaflet and sclerotic, no stenosis and no regurgitation. 5. The mitral valve is sclerotic, mild mitral regurgitation. 6. 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 7. Compared to the 2020 echo, the LV function has mildly declined. Status: Acute (6) Hypothyroidism: Problem comment: - TSH has been 0.29-1.34 over the past 1-2 years - will decrease dose of Synthroid from 100 --> 50mcg (11/12) given age Status: Acute (7) Acute subdural hematoma: Problem comment: - per formal radiology read of head CT on 11/12: 1. Thin 6 mm extra-axial collection along the right cerebral convexity, new from 11/11/2023, with discrete hyperdense and hypodense components, suggestive of subdural hematohygroma. 2. No skull fracture, midline shift, or herniation - ER physician reviewed with Neurosurgery, who did not recommend any followup imaging - continue neuro checks, follow clinically - discontinue Coumadin after risk and benefit discussion with patient and family Status: Acute Plan 1. Reviewed impression and recommendations with patient 2. Answered his questions 3. He is agreeable with above stated plans and recommendations Total Time Spent Total Time Spent: 45 minutes Subjective Date Seen: 08/15/24 Interval history: 08/15/2024, admission history of present illness: ?89 year old male with a history of CHF with mildly reduced ejection fraction, atrial fibrillation on Coumadin, diet-controlled diabetes, hypothyroidism, AN, hyperlipidemia who has been ill since August 11 with coughing, subjective fevers and chills. He has been coughing up sputum, no blood. He has also had shortness of breath associated with this. Patient has a history of pacemaker placement for atrial fibrillation, and has AV paced rhythm on EKG. He swabbed negative for COVID, influenza, RSV. CT scan obtained in the emergency department revealed bilateral patchy opacities, possible community-acquired pneumonia. Tmax was 100.0, initial pulse was 112, with room air saturation in the 90s on room air. And this has remained stable. Patient was given 1 L of fluid only for lactate of 2.8. He was given empiric Rocephin and doxycycline. Due to the analyzer being down, we cannot recheck the lactic acid at this time. Patient will be admitted observation to ensure continued improvement.? By the time I see him on the morning of admission he stating he is feeling much improved. No longer having rigors and chills. Cough and dyspnea are improved. He satisfied with improvement. Exam Narrative: Exam Narrative: I examine him in his hospital room. Appears comfortable. Alert and oriented x3. Cooperative and friendly. Rales in the right base. Scattered rhonchi. No wheezing. Heart tones with regular rhythm. Abdomen benign. Extremities without edema. No focal motor neurologic deficits. Const: Vital Signs, click to edit/add: Vital Signs - 24 hr 08/14/24 21:11 08/14/24 21:48 08/14/24 22:00 Temperature 100 F H Pulse Rate 70 Pulse Rate [Left R adial] Pulse Rate [Pulse Oximeter] 112 H Respiratory Rate 26 H 14 Blood Pressure Blood Pressure [Le ft Arm] Blood Pressure [Ri ght Upper Arm] 177/100 H Pulse Oximetry 96 95 94 Oxygen Delivery Me thod 08/14/24 22:00 08/14/24 22:02 08/14/24 22:23 Temperature Pulse Rate 75 71 83 Pulse Rate [Left R adial] Pulse Rate [Pulse Oximeter] Respiratory Rate 23 20 20 Blood Pressure 126/59 L Blood Pressure [Le ft Arm] Blood Pressure [Ri ght Upper Arm] Pulse Oximetry 93 94 94 Oxygen Delivery Me thod 08/14/24 22:30 08/14/24 22:34 08/14/24 22:45 Temperature Pulse Rate 70 73 83 Pulse Rate [Left R adial] Pulse Rate [Pulse Oximeter] Respiratory Rate 14 12 26 H Blood Pressure 136/75 Blood Pressure [Le ft Arm] Blood Pressure [Ri ght Upper Arm] Pulse Oximetry 95 95 96 Oxygen Delivery Me thod 08/14/24 23:00 08/14/24 23:02 08/14/24 23:05 Temperature Pulse Rate 91 85 Pulse Rate [Left R adial] Pulse Rate [Pulse Oximeter] Respiratory Rate 17 22 Blood Pressure 170/78 H Blood Pressure [Le ft Arm] Blood Pressure [Ri ght Upper Arm] Pulse Oximetry 95 97 Oxygen Delivery Me od Room Air 08/14/24 23:15 08/14/24 23:27 08/14/24 23:30 Temperature 99.0 F Pulse Rate 70 70 Pulse Rate [Left R adial] Pulse Rate [Pulse Oximeter] Respiratory Rate 12 Blood Pressure Blood Pressure [Le ft Arm] Blood Pressure [Ri ght Upper Arm] Pulse Oximetry 95 94 Oxygen Delivery Me thod 08/14/24 23:33 08/14/24 23:45 08/15/24 00:00 Temperature Pulse Rate 70 70 70 Pulse Rate [Left R adial] Pulse Rate [Pulse Oximeter] Respiratory Rate 14 Blood Pressure 107/58 L Blood Pressure [Le ft Arm] Blood Pressure [Ri ght Upper Arm] Pulse Oximetry 94 94 94 Oxygen Delivery Me thod 08/15/24 00:03 08/15/24 00:03 08/15/24 00:03 Temperature Pulse Rate 70 70 70 Pulse Rate [Left R adial] Pulse Rate [Pulse Oximeter] Respiratory Rate 16 16 10 L Blood Pressure 110/67 110/67 110/67 Blood Pressure [Le ft Arm] Blood Pressure [Ri ght Upper Arm] Pulse Oximetry 94 94 94 Oxygen Delivery Me od Room Air 08/15/24 01:13 08/15/24 01:15 08/15/24 01:39 Temperature 99.2 F 98.6 F Pulse Rate Pulse Rate [Left R adial] 72 74 Pulse Rate [Pulse Oximeter] Respiratory Rate 18 16 16 Blood Pressure Blood Pressure [Le ft Arm] 128/71 129/71 Blood Pressure [Ri ght Upper Arm] Pulse Oximetry 95 96 96 [facility] Room Air 08/15/24 02:20 08/15/24 02:23 08/15/24 02:24 Temperature 99.6 F 99.6 F Pulse Rate 73 Pulse Rate [Left R adial] 71 Pulse Rate [Pulse Oximeter] Respiratory Rate 18 Blood Pressure Blood Pressure [Le ft Arm] 116/67 Blood Pressure [Ri ght Upper Arm] Pulse Oximetry 94 [facility] 08/15/24 03:30 08/15/24 03:31 08/15/24 07:00 Temperature 97.8 F 97.8 F Pulse Rate 74 Pulse Rate [Left R adial] Pulse Rate [Pulse Oximeter] Respiratory Rate Blood Pressure Blood Pressure [Le ft Arm] Blood Pressure [Ri ght Upper Arm] Pulse Oximetry [facility] 08/15/24 08:33 08/15/24 08:33 08/15/24 08:37 Temperature 98.1 F Pulse Rate Pulse Rate [Left R adial] 74 Pulse Rate [Pulse Oximeter] Respiratory Rate 18 18 Blood Pressure Blood Pressure [Le ft Arm] 121/75 Blood Pressure [Ri ght Upper Arm] Pulse Oximetry 95 95 [facility] 08/15/24 11:09 Temperature 98.6 F Pulse Rate Pulse Rate [Left R adial] 87 Pulse Rate [Pulse Oximeter] Respiratory Rate 18 Blood Pressure Blood Pressure [Le ft Arm] 135/81 Blood Pressure [Ri ght Upper Arm] Pulse Oximetry 94 [facility] Labs Labs: Laboratory Results - last 24 hr 08/14/24 08/14/24 08/14/24 00:00 21:12 22:00 WBC 8.63 RBC 4.51 Hgb 14.5 Hct 43.2 MCV 96 MCH 32 MCHC 34 RDW Coeff of [place] 13.1 Plt Count 142 Neut % (Auto) 83.1 H Lymph % (Auto) 10.0 L [place] % (Auto) 4.5 Eos % (Auto) 1.9 Baso % (Auto) 0.3 Neut # (Auto) 7.20 H Lymph # (Auto) 0.90 [place] # (Auto) 0.40 Eos # (Auto) 0.16 Baso # (Auto) 0.03 Abs Immat Gran (auto) 0.02 Imm/Tot Granulo (auto) 0.2 INR VBG pH 7.440 H VBG pCO2 45 VBG pO2 31.7 VBG HCO3 31 H Sodium 143 Potassium 3.6 Chloride 104 Carbon Dioxide 29 Anion Gap 10 BUN 17 Creatinine 0.7 Estimated Creat Clear 51.71 Estimated GFR 88 Glucose 187 H Lactate Cancelled 2.8 H Calcium 9.1 Total Bilirubin 2.9 H Direct Bilirubin 0.3 AST 28 ALT 21 Alkaline Phosphatase 104 Troponin I < 0.01 C-Reactive Protein 1.2 H NT-Pro-B Natriuret Pep 769 Total Protein 7.0 Albumin 3.9 Lipase 51 SARS-CoV-2 (PCR) Negative SARS-CoV-2 Influenza Type A (PCR) Negative PCR FLU A Influenza Type B (PCR) Negative PCR FLU B RSV (PCR) Negative PCR RSV Lab Acknowledgement 08/15/24 08/15/24 08/15/24 07:41 07:43 08:17 WBC RBC Hgb Hct MCV MCH MCHC RDW Coeff of [place] Plt Count Neut % (Auto) Lymph % (Auto) [place] % (Auto) Eos % (Auto) Baso % (Auto) Neut # (Auto) Lymph # (Auto) [place] # (Auto) Eos # (Auto) Baso # (Auto) Abs Immat Gran (auto) Imm/Tot Granulo (auto) INR 2.73 H VBG pH VBG pCO2 VBG pO2 VBG HCO3 Sodium Potassium Chloride Carbon Dioxide Anion Gap BUN Creatinine Estimated Creat Clear Estimated GFR Glucose Lactate 1.6 Calcium Total Bilirubin Direct Bilirubin AST ALT Alkaline Phosphatase Troponin I C-Reactive Protein NT-Pro-B Natriuret Pep Total Protein Albumin Lipase SARS-CoV-2 (PCR) Influenza Type A (PCR) Influenza Type B (PCR) RSV (PCR) Lab Acknowledgement Test Added Test Added Imaging CT scan - chest: Radiologist's impression: Bibasilar patchy and consolidative pulmonary opacities compatible with an infectious or inflammatory process. Follow-up CT in 8-12 weeks may be considered for further evaluation.
--- NOTE | 2024-08-15 15:31 | PC.NURSE ---
end of shift. pt has been pleasant. no pain no fevers. he is eating and drinking and voiding./ he had a swallow eval this am. we are crushing all meds. see note on swallow study. IV is patent. he is up with SBA and a walker. he is on PNX precauations
--- NOTE | 2024-08-15 15:40 | PC.PHA ---
Warfarin consult note: Reason for warfarin: AFIB, PACEMAKER INR goal requested by the provider: 2-3 Most recent INR: 08/15/24 Usual home dose (if any): 5 MG MONDAYS, 2.5 MG ALL OTHER DAYS Today's dose ordered: 2.5 MG PER CONSULT WITH DR MENSAH Vitamin K given: Comments:PAST CHART NOTE RE:STOPPING COUMADIN, PATIENT NOT AWARE OF STOPPING HE HAS BEEN COMPLIANT WITH INR CHECK AT [facility], DISCUSSED WITH DR MENSAH 08/15/24 AND OVERNIGHT ADMITTING MD ORDERED
[2024-08-15] MEDS: WARFARIN 2.5 MG TABLET PO (17:05)
[2024-08-15] MEDS: cefTRIAXone 2 GM in 0.9 % SODIUM CHLORIDE Mini-bag 100 ML IVPB (21:01)
--- NOTE | 2024-08-15 22:50 | PC.NURSE ---
Patient alert and oriented x4. Continues to be Vpaced on tele. Vital signs stable.
[2024-08-16] VITALS: BP 125/72; PULSE 70; RESP 16; TEMP 36.6; O2SAT 96
[2024-08-16 00:38] VITALS: PULSE 71
[2024-08-16 02:30] VITALS: BP 153/98; PULSE 72; RESP 16; TEMP 36.8; O2SAT 97
--- NOTE | 2024-08-16 06:16 | PC.NURSE ---
Addendum entered by Arline Greer 08/16/24 06:27: Correction to note pt tolerating a therapeutic diet. Original Note: Pt alert and oriented x3. Afebrile. On room air. Pt continues to have course crackles in posterior bases. Pt denies pain, chest pain, SOB, and N/V. Pt is up with 4 wheeled walker, voiding, and tolerating a regular diet. ??
[2024-08-16 07:50] LABS: Hematocrit 39.7 % (37.0-53.0); Hemoglobin* 13.4 gm/dL (13.5-17.5); Mean Corpuscular HGB Conc 34 gm/dL (32-36); Mean Corpuscular Hemoglobin 33 pg (26-34); Mean Corpuscular Volume 97 fL (80-100); Platelet Count* 124 K/uL (140-440); Red Blood Count 4.11 m/uL (4.30-5.90); White Blood Count* 5.82 K/uL (4.50-11.00)
[2024-08-16 07:52] VITALS: BP 141/85; PULSE 71; RESP 16; TEMP 36.6; O2SAT 99
[2024-08-16 08:04] LABS: Potassium* 3.7 mmol/L (3.6-5.1)
[2024-08-16 08:06] LABS: Slide Review Reflex No
[2024-08-16] MEDS: POTASSIUM CHLORIDE 10 MEQ CAPSULE ER 20 MEQ PO (08:31)
[2024-08-16] MEDS: FINASTERIDE 5 MG TABLET PO (08:31)
[2024-08-16] MEDS: ATORVASTATIN CALCIUM 40 MG TABLET PO (08:31)
[2024-08-16] MEDS: SODIUM CHLORIDE 0.9 % (FLUSH) 10 ML SYRINGE 5 ML IVF (08:32)
[2024-08-16] MEDS: DOXYCYCLINE HYCLATE 100 MG in 0.9 % SODIUM CHLORIDE Mini-bag 100 ML IVPB (08:32)
[2024-08-16] MEDS: METOPROLOL SUCCINATE (XL) 25 MG TAB PO (08:32)
[2024-08-16 08:47] VITALS: O2SAT 99
--- NOTE | 2024-08-16 11:14 | PC.NURSE ---
Patient discharged home with sons. Reviewed discharge information and follow up appointments. All questions answered. Sons will metal pickling equipment operator prescriptions on the way home. Patient will have swallow study done on 08/26 here at the hospital. Patient was given instructions from Speech on how to eat/drink until swallow evaluation.
--- NOTE | 2024-08-16 11:47 | PM.DS1 ---
DS: Providers Provider Date Seen: 08/16/24 Date of admission: 08/15/24 00:45 Primary care physician: Vasyl Hay MD Admitting Clinician: Cipriano Hendrix MD Consults: 08/15/24 01:27 Consult to Speech Therapy [CONS] Routine Comment: Reason(s) for Speech Consult:: Speech/Swallowing Eval Attending Physician on discharge: Pablito Cowart MD Date of Discharge: 08/16/24 DS: Diagnosis Discharge Diagnosis (1) Community acquired pneumonia: Status: Acute Problem details: -on ceftriaxone and doxycycline - 5 more days of cefadroxil and doxycycline at time of discharge (2) Sepsis: Status: Acute Problem details: -08/14/2024: Rigors, cough, dyspnea, fever, tachycardia, elevated lactate on presentation. -08/15/2024: resolved with IV fluids, IV antibiotics (3) Elevated bilirubin: Status: Acute Problem details: - total bilirubin 2.9 with direct bilirubin 0.3 and indirect bilirubin elevated at 2.6 consistent with dehydrated state - 3.2 on 11/12, has been elevated in the past on chart review - last Ab/Pelvis imaging in May 2022 (per chart review) revealed no hepatobiliary or pancreatic abnormalities - follow and consider outpatient workup (4) Dysphagia: Status: Acute Problem details: - noted over the past year, primarily with solids and larger pills - speech therapy consult recommended outpatient video swallow exam and follow-up with primary care physician (5) DM2 (diabetes mellitus, type 2): Status: Acute Problem details: - diet controlled, last A1C 6.19 May 2023 - accuchecks (6) CHF (congestive heart failure), NYHA class II: Status: Acute Problem details: - with decreased LV function - last TTE in 2021: Final Impressions: 1. Normal LV size, moderately increased wall thickness, mildly reduced global systolic function with an estimated EF of 40 - 45%. 2. Abnormal septal motion consistent with RV pacemaker. 3. Moderately enlarged left atrium. 4. The aortic valve is trileaflet and sclerotic, no stenosis and no regurgitation. 5. The mitral valve is sclerotic, mild mitral regurgitation. 6. 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 7. Compared to the 2020 echo, the LV function has mildly declined. (7) Atrial fibrillation: Status: Acute Problem details: - rate controlled on Metoprolol, on Coumadin (stopping 11/12) (8) Hypothyroidism: Status: Acute Problem details: - TSH has been 0.29-1.34 over the past 1-2 years - will decrease dose of Synthroid from 100 --> 50mcg (11/12) given age DS: Summary Hospital Course Hospital Course: 08/15/2024, admission history of present illness: ?89 year old male with a history of CHF with mildly reduced ejection fraction, atrial fibrillation on Coumadin, diet-controlled diabetes, hypothyroidism, AN, hyperlipidemia who has been ill since August 11 with coughing, subjective fevers and chills. He has been coughing up sputum, no blood. He has also had shortness of breath associated with this. Patient has a history of pacemaker placement for atrial fibrillation, and has AV paced rhythm on EKG. He swabbed negative for COVID, influenza, RSV. CT scan obtained in the emergency department revealed bilateral patchy opacities, possible community-acquired pneumonia. Tmax was 100.0, initial pulse was 112, with room air saturation in the 90s on room air. And this has remained stable. Patient was given 1 L of fluid only for lactate of 2.8. He was given empiric Rocephin and doxycycline. Due to the analyzer being down, we cannot recheck the lactic acid at this time. Patient will be admitted observation to ensure continued improvement.? On date of discharge he is feeling much improved. No longer having rigors and chills. Cough and dyspnea are improved. He satisfied with improvement. He is back to baseline physical abilities. Radiologist recommends repeat imaging of chest in 8-12 weeks. Status at Discharge Functional status at discharge: uses cane/walker Overall status at discharge: patient is back to baseline Time Spent with Patient Time attestation: Total time spent providing and/or coordinating discharge services: Time spent: Greater than 30 minutes Exam Narrative: Exam Narrative: I examine him in his hospital room. Appears comfortable. Alert and oriented x3. Cooperative and friendly. Lungs are remarkably clear today compared to yesterday. Only minimal end inspiratory rales bibasilarly. No wheezing or rhonchi. Heart tones with regular rhythm. Abdomen benign. Extremities without edema. No focal motor neurologic deficits. Const: Vital Signs, click to edit/add: Vital Signs - 24 hr 08/15/24 15:00 08/15/24 15:00 08/15/24 15:00 Temperature 98.3 F Pulse Rate Pulse Rate [Left R adial] 72 72 Respiratory Rate 18 18 Blood Pressure [Le ft Arm] 115/73 Pulse Oximetry 98 98 Oxygen Delivery Me thod Room Air 08/15/24 19:00 08/16/24 00:00 08/16/24 00:00 Temperature 98.5 F Pulse Rate Pulse Rate [Left R adial] 72 Respiratory Rate 18 16 Blood Pressure [Le ft Arm] 114/65 Pulse Oximetry 95 96 Oxygen Delivery Me thod Room Air 08/16/24 00:00 08/16/24 00:38 08/16/24 02:30 Temperature 97.9 F 98.2 F Pulse Rate 71 Pulse Rate [Left R adial] 70 72 Respiratory Rate 16 16 Blood Pressure [Le ft Arm] 125/72 153/98 H Pulse Oximetry 96 [facility] 08/16/24 07:52 08/16/24 08:47 Temperature 97.8 F Pulse Rate Pulse Rate [Left R adial] 71 Respiratory Rate 16 Blood Pressure [Le ft Arm] 141/85 H Pulse Oximetry 99 99 Oxygen Delivery Me od Room Air DS: Data Data Completed and Pending Labs on day of discharge: Labs from last 24 hours 08/16/24 07:43 WBC 5.82 RBC 4.11 L Hgb 13.4 L Hct 39.7 MCV 97 MCH 33 MCHC 34 Plt Count 124 L Potassium 3.7 Preliminary micro results at discharge 08/14/24 22:31 Blood Culture - Preliminary Blood NO GROWTH AFTER 24 HOURS 08/14/24 22:00 Blood Culture - Preliminary Blood NO GROWTH AFTER [address] scan - chest: Radiologist's impression: Bibasilar patchy and consolidative pulmonary opacities compatible with an infectious or inflammatory process. Follow-up CT in 8-12 weeks may be considered for further evaluation. Discharge Plan Discharge Disposition: Home, Self-Care Date of Admission: 08/15/24 00:45 Attending Provider on Discharge: Pablito Cowart Primary Care Provider: Vasyl Hay Condition: Improved Anticipated Discharge Date/Time: 08/16/24 11:55 Discharge Medications: New doxycycline hyclate 100 mg capsule 100 mg PO BID 5 Days Qty: 10 0RF cefdinir 300 mg capsule 300 mg PO BID Qty: 10 0RF Continued atorvastatin 40 mg tablet 40 mg PO DAILY furosemide 20 mg tablet 40 mg PO DAILY levothyroxine 100 mcg tablet 100 mcg PO DAILY finasteride 5 mg tablet 5 mg PO DAILY potassium chloride 20 mEq tablet,ER particles/crystals 20 meq PO DAILY metoprolol succinate 25 mg tablet extended release 24 hr 25 mg PO DAILY Patient Comments: [NO ORIGINAL SIG] warfarin 5 mg tablet 2.5 mg PO DAILY Rx Instructions: TAKING 5 MG ON MONDAYS AND 2.5 MG ALL OTHER DAYS Discharge Orders: Discharge Order (Routine); Ordered 08/16/24 Ordered By: Pablito Cowart Patient Education: Doxycycline (By mouth), Cefdinir (By mouth), Chronic Dysphagia (IP), Community Acquired Pneumonia (GEN) Additional Instructions: 1. Please schedule outpatient video swallow exam for 08/26/24 at 8:15AM with results to Dr. Vasyl Hay 2. Dr. Hay in 2-4 days if able to schedule the video swallow exam for 08/17/24, follow-up community acquired pneumonia and dysphagia Activity Level: Activity as Tolerated Discharge Diet: Regular Follow Up Appointments: Vasyl Hay MD [Primary Care Provider] - 08/30/24 1:15 pm Forms: [employer] Info Instructions
--- NOTE | 2024-08-17 10:42 | REH.SLP ---
Speech Language Pathology Discharge Summary Reason for therapy discharge: Discharged to home. Progress towards therapy goals. Goals not met. See goals in speech therapy notes in [facility] electronic health records. Rehab barriers to achieving goals: discharge from facility. Therapy Recommendations: Continued therapy is recommended for outpatient video swallow study to further assess pharyngeal phase of the swallow.
== END 2024-08-16 11:17 | disposition home or self-care (01) ==
LOC: ED 08-15 00:16 → MEDSURG 08-15 00:46
PROVIDERS: Internal Medicine; Admitting Provider Internal Medicine; Emergency Provider Family Medicine; PCP Family Medicine; Visit Provider Internal Medicine
DX: J18.9 Pneumonia, unspecified organism (principal); A41.9 Sepsis, unspecified organism; R91.8 Other nonspecific abnormal finding of lung field; R74.02 Elevation of levels of lactic acid dehydrogenase [LDH]; R13.10 Dysphagia, unspecified; R17 Unspecified jaundice; I48.91 Unspecified atrial fibrillation; I50.9 Heart failure, unspecified; Z95.0 Presence of cardiac pacemaker; Z79.01 Long term (current) use of anticoagulants; R05.9 Cough, unspecified; G47.33 Obstructive sleep apnea (adult) (pediatric); R06.00 Dyspnea, unspecified; R68.83 Chills (without fever); R06.02 Shortness of breath; R00.0 Tachycardia, unspecified; E78.5 Hyperlipidemia, unspecified; E11.9 Type 2 diabetes mellitus without complications; E03.9 Hypothyroidism, unspecified; S06.5XAA Traumatic subdural hemorrhage with loss of consciousness status unknown, initial encounter; Z87.891 Personal history of nicotine dependence; Z66 Do not resuscitate
CPT/HCPCS: 36415; 71045; 71250; 80053; 82248; 82803; 83605; 83690; 83880; 84132; 84484; 85025; 85027; 85610; 86140; 87040; 87631; 92526; 92610; 93005; 94761; 96365; 96366; 96367; 96375; 99285; A9270; G0378; J0696; J7030

== ENCOUNTER 2024-08-26 07:47 | Outpatient (CLI) | payer MEDICARE, BC, SELFPAY ==
--- NOTE | 2024-08-26 08:15 | CRLHL7_ITS ---
For Patients: As a result of the 21st Century Cures Act, medical imaging exams and procedure reports are released immediately into your electronic medical record. You may view this report before your referring provider. If you have questions, please contact your health care provider. INDICATION: Difficulty swallowing TECHNIQUE: Modified barium swallow. Fluoroscopic time 1.36 minutes. FINDINGS/IMPRESSION: Anatomical structures are normal. Swallowing mechanism appears within normal limits. No episodes of penetration or aspiration. No significant findings. Dictated by Pancho Rasheed MD @ 08/26/2024 11:17:39 AM (Electronically Signed)
== END 2024-08-26 07:48 | disposition home or self-care (01) ==
LOC: RAD 07:48
PROVIDERS: PCP Family Medicine; Visit Provider Family Medicine
DX: R13.10 Dysphagia, unspecified (principal)
CPT/HCPCS: 74230; 92611